=== PATIENT | female | born 1940 | race Caucasian/White ===

== ENCOUNTER → 2017-06-09 | Outpatient (CLI) | payer MEDICARE, BC ==
[2017-06-09 14:54] LABS: Blood Urea Nitrogen 14 mg/dL (7-17); Non-African American GFR(MDRD) >60 (>60 ml/min/1.73 sqM)
--- NOTE | 2017-06-09 16:17 | CT ---
EXAMINATION TYPE: CT angio abd aorta wo/w con DATE OF EXAM: 06/09/2017 COMPARISON: 12/11/2013 INDICATION: Abdominal aortic aneurysm DLP: 1332 mGycm, Automated exposure control for dose reduction was used. CONTRAST: 86 mL of Omnipaque 350. Study performed without Oral Contrast TECHNIQUE: Axial images were obtained from above the diaphragm to the pubic rami in the axial plane a t 5 mm thick sections. Reconstructed images are reviewed on the computer in the coronal plane. Pre and postcontrast imaging is performed. FINDINGS: Limited CT sections are obtained the lung bases. The lung bases are clear. CT ABDOMEN: Liver: Normal Spleen: Normal Pancreas: Normal Adrenal glands: The adrenal glands are normal. Gallbladder: Normal Kidneys: No masses are evident. No hydronephrosis is present. No cysts are present. Delayed images were obtained through the kidneys, which remain unremarkable. Aorta: Vascular calcification is within the aorta. There is aneurysmal dilatation of the mid infrare nal abdominal aorta with an AP diameter of 4.2 cm. This extends to the aortic bifurcation. Aortic samuel meter is increased from 2014 from 4.0 cm. Some wall thrombus is within the right lateral portion of t he aneurysm. Inferior vena cava: Normal. CT PELVIS: Studies without oral contrast limiting evaluation of loops of bowel. Loops of bowel is visualized lai ears unremarkable. There are postsurgical changes within the colon. Diverticular changes are likely p resent within the pelvis. Fecal debris is present Appendix: Not identified Urinary bladder: Decompressed with limited evaluation Genitourinary structures: Uterus and ovaries are not identified Osseous structures: No suspicious lytic or sclerotic lesions. RUNOFF: External iliac vessels extending to the common femoral arteries. Common femoral arteries bifurcate in to profunda femoris and superficial femoral arteries. Superficial femoral arteries are patent to the popliteal arteries. Popliteal arteries extending to the trifurcation vessels. Posterior tibial and an terior tibial arteries are identified to the ankle region. The peroneal arteries terminate within the proximal portions. IMPRESSIONS: 1. Abdominal aortic aneurysm measuring 4.2 cm. This is increased from 4.0 cm in 2014. This infrarena l abdominal aortic aneurysm appears bilobed but terminates at the bifurcation. 2. Posterior tibial and anterior tibial arteries appear to be patent to the level of the ankles. Lowe r extremity runoff is otherwise unremarkable.
== END | disposition home or self-care (01) ==
LOC: RADCTMAIN 14:25
PROVIDERS: ATTEND Internal Medicine Critical Care Medicine
DX: I71.4 Abdominal aortic aneurysm, without rupture (principal)
CPT/HCPCS: 82565; 84520; 75635; 36415; Q9967

== ENCOUNTER 2020-02-13 03:55 | Inpatient (IN) | payer MEDICARE, BC ==
[2020-02-13] MEDS ORDERED: IPRATROPIUM-ALBUTEROL 3 ML NEB INHALATION STA ×2 (04:04→05:00)
[2020-02-13] MEDS ORDERED: ACETAMINOPHEN TAB 500 MG TAB PO STA (04:08)
--- NOTE | 2020-02-13 04:10 | ED ---
SOB HPI - General Chief Complaint: Shortness of Breath Stated Complaint: [place] Time Seen by Provider: 02/13/20 04:08 Source: EMS, RN notes reviewed, old records reviewed, Caregiver Mode of arrival: EMS Limitations: physical limitation - History of Present Illness Initial Comments: This is an 80-year-old female DF a poor historian patient is poor strain se condary to significant clinical condition history obtained by EMS of patient being in severe us for a stress can catch her breath history of CHF and COPD with recurrent ammonium multiple recent admissions or hospitalizations for breathing disorders MD Complaint: shortness of breath, cough, anxiety -: days(s) Severity: severe Severity scale (1-10): 10 Quality: dull Consistency: constant Improves With: nothing Worsens With: exertion, movement, coughing, inspiration Known History Of: COPD, recurrent pneumonia Context: recent URI, recent illness Associated Symptoms: chest pain, fever, cough, diaphoresis, nausea/vomiting Treatments Prior to Arrival: none - Related Data Home Medications Medication Instructions Recorded Confirmed Pravastatin Sodium [Pravachol] 20 mg PO HS 11/10/14 02/13/20 Tiotropium [place] [Spiriva] 1 cap INHALATION RT-DAILY 11/10/14 02/13/20 Albuterol Sulfate [Albuterol 1 - 2 puff PO RT-Q4H PRN 02/13/20 02/13/20 Sulfate Hfa] Cholecalciferol [Vitamin D3 (25 1,000 unit PO DAILY 02/13/20 02/13/20 Mcg = 1000 Iu)] Fluticasone Propion/Salmeterol 1 puff INHALATION RT-BID 02/13/20 02/13/20 [Wixela 500-50 Inhub] Multivitamin [Multivitamins Adult 1 tab PO DAILY 02/13/20 02/13/20 Gummies] predniSONE 10 mg PO DAILY 02/13/20 02/13/20 Allergies Allergy/AdvReac Type Severity Reaction Status Date / Time erythromycin base AdvReac "MADE ME Verified 02/13/20 06:48 TREMBLE" levofloxacin [From Levaquin] AdvReac "MADE ME Verified 02/13/20 06:48 TREMBLE" Review of Systems ROS Statement: Those systems with pertinent positive or pertinent negative responses have been documented in the HPI. ROS Other: All systems not noted in ROS Statement are negative. Past Medical History Past Medical History: COPD Additional Past Medical History / Comment(s): o2 dependant 2 liters cont. History of Any Multi-Drug Resistant Organisms: None Reported Past Surgical History: Hysterectomy Additional Past Surgical History / Comment(s): colonoscopy, colon cancer surgery, cataracts, BRONCHOSCOPY Past Anesthesia/Blood Transfusion Reactions: No Reported Reaction Past Psychological History: No Psychological Hx Reported Smoking Status: Former smoker Past Alcohol Use History: None Reported Past Drug Use History: None Reported - Past Family History Father Family Medical History: Cancer Mother Family Medical History: Diabetes Mellitus Brother(s) Family Medical History: Cancer Additional Family Medical History / Comment(s): PROSTATE CANCER, General Exam Limitations: altered mental status, physical limitation General appearance: alert, anxious, lethargic, in distress Head exam: Present: atraumatic, normocephalic, normal inspection Eye exam: Present: normal appearance, PERRL, EOMI. Absent: scleral icterus, conjunctival injection, periorbital swelling ENT exam: Present: normal exam, mucous membranes dry Neck exam: Present: normal inspection. Absent: tenderness, meningismus, lymphadenopathy Respiratory exam: Present: respiratory distress, wheezes, rhonchi, accessory muscle use, decreased breath sounds, prolonged expiratory. Absent: rales, stridor Cardiovascular Exam: Present: normal rhythm, tachycardia, normal heart sounds. Absent: systolic murmur, diastolic murmur, rubs, gallop, clicks GI/Abdominal exam: Present: soft, normal bowel sounds. Absent: distended, tenderness, guarding, rebound, rigid Extremities exam: Present: normal inspection, full ROM, normal capillary refill. Absent: tenderness, pedal edema, joint swelling, calf tenderness Back exam: Present: normal inspection Neurological exam: Present: alert, oriented X3, CN II-XII intact Psychiatric exam: Present: normal affect, normal mood Skin exam: Present: warm, dry, intact, normal color. 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 ] Respiratory 40 H 38 H Rate Blood Pressure 131/117 112/60 Blood Pressure [Right Arm] O2 Sat by Pulse 95 95 Oximetry 02/13/20 02/13/20 02/13/20 04:19 04:20 05:32 Temperature 97.9 F Pulse Rate 125 H 120 H Pulse Rate [ 123 H 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 ] Respiratory 20 Rate Blood Pressure 91/55 Blood Pressure [Right Arm] O2 Sat by Pulse 95 Oximetry 02/13/20 02/13/20 06:30 06:32 Temperature 97.7 F 97.4 F L Pulse Rate 101 H Pulse Rate [ 97 [employer]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 ] Respiratory 22 22 Rate Blood Pressure 90/71 Blood Pressure 88/51 [Right Arm] O2 Sat by Pulse 94 L 96 Oximetry - Reevaluation(s) Reevaluation #1: Medical record is reviewed Patient symptoms are not really improved and patient is placed on BiPAP on arrival, continue breathing treatments given Patient informed results as well as daughter at bedside Medical Decision Making - Medical Decision Making 80-year-old female Stewart with significant multifactorial for a stress COPD CHF and rule out covert, patient is hypoxic will admit for telemetry continue BiPAP breathing treatments - Lab Data Result diagrams: 02/15/20 05:45 02/15/20 05:45 Lab Results 02/13/20 02/13/20 02/13/20 Range/Units 04:15 04:15 04:15 WBC 12.9 H (3.8-10.6) k/uL RBC 4.75 (3.80-5.40) m/uL Hgb 13.8 (11.4-16.0) gm/dL Hct 43.7 (34.0-46.0) % MCV 91.9 (80.0-100.0) fL MCH 29.1 (25.0-35.0) pg MCHC 31.6 (31.0-37.0) g/dL RDW 13.8 (11.5-15.5) % Plt Count 204 (150-450) k/uL Neutrophils % (Manual) 73 % Band Neutrophils % 10 % Lymphocytes % (Manual) 9 % Monocytes % (Manual) 6 % Metamyelocytes % 2 % Myelocytes % 1 % Neutrophils # (Manual) 10.70 H (1.3-7.7) k/uL Lymphocytes # (Manual) 1.16 (1.0-4.8) k/uL Monocytes # (Manual) 0.77 (0-1.0) k/uL Metamyelocytes # (Man) 0.26 H (0) k/uL Myelocytes # (Manual) 0.13 H (0) k/uL Nucleated RBCs 0 (0-0) /100 WBC Manual Slide Review Performed Toxic Granulation Present Anisocytosis (manual) Present PT 11.1 (9.0-12.0) sec INR 1.1 (<1.2) APTT 22.1 (22.0-30.0) sec D-Dimer >35.20 H (<0.60) mg/L FEU Sodium 135 L (137-145) mmol/L Potassium 3.6 (3.5-5.1) mmol/L Chloride 98 (98-107) mmol/L Carbon Dioxide 30 (22-30) mmol/L Anion Gap 7 mmol/L BUN 20 H (7-17) mg/dL Creatinine 0.46 L (0.52-1.04) mg/dL Est GFR (CKD-EPI)AfAm >90 (>60 ml/min/1.73 sqM) Est GFR (CKD-EPI)NonAf >90 (>60 ml/min/1.73 sqM) Glucose 119 H (74-99) mg/dL Plasma Lactic Acid Ayaan (0.7-2.0) mmol/L Calcium 9.0 (8.4-10.2) mg/dL Magnesium 1.6 (1.6-2.3) mg/dL Ferritin 245.3 (10.0-291.0) ng/mL Total Bilirubin 1.0 (0.2-1.3) mg/dL AST 21 (14-36) U/L ALT 13 (4-34) U/L Alkaline Phosphatase 63 (38-126) U/L Lactate Dehydrogenase 452 (313-618) U/L C-Reactive Protein 189.1 H (<10.0) mg/L Total Protein 5.9 L (6.3-8.2) g/dL Albumin 3.7 (3.5-5.0) g/dL Procalcitonin (0.02-0.09) ng/mL Coronavirus (PCR) (Not Detected) 02/13/20 02/13/20 02/13/20 Range/Units 04:15 04:15 04:44 WBC (3.8-10.6) k/uL RBC (3.80-5.40) m/uL Hgb (11.4-16.0) gm/dL Hct (34.0-46.0) % MCV (80.0-100.0) fL MCH (25.0-35.0) pg MCHC (31.0-37.0) g/dL RDW (11.5-15.5) % Plt Count (150-450) k/uL Neutrophils % (Manual) % Band Neutrophils % % Lymphocytes % (Manual) % Monocytes % (Manual) % Metamyelocytes % % Myelocytes % % Neutrophils # (Manual) (1.3-7.7) k/uL Lymphocytes # (Manual) (1.0-4.8) k/uL Monocytes # (Manual) (0-1.0) k/uL Metamyelocytes # (Man) (0) k/uL Myelocytes # (Manual) (0) k/uL Nucleated RBCs (0-0) /100 WBC Manual Slide Review Toxic Granulation Anisocytosis (manual) PT (9.0-12.0) sec INR (<1.2) APTT (22.0-30.0) sec D-Dimer (<0.60) mg/L FEU Sodium (137-145) mmol/L Potassium (3.5-5.1) mmol/L Chloride (98-107) mmol/L Carbon Dioxide (22-30) mmol/L Anion Gap mmol/L BUN (7-17) mg/dL Creatinine (0.52-1.04) mg/dL Est GFR (CKD-EPI)AfAm (>60 ml/min/1.73 sqM) Est GFR (CKD-EPI)NonAf (>60 ml/min/1.73 sqM) Glucose (74-99) mg/dL Plasma Lactic Acid Ayaan 1.3 (0.7-2.0) mmol/L Calcium (8.4-10.2) mg/dL Magnesium (1.6-2.3) mg/dL Ferritin (10.0-291.0) ng/mL Total Bilirubin (0.2-1.3) mg/dL AST (14-36) U/L ALT (4-34) U/L Alkaline Phosphatase (38-126) U/L Lactate Dehydrogenase (313-618) U/L C-Reactive Protein (<10.0) mg/L Total Protein (6.3-8.2) g/dL Albumin (3.5-5.0) g/dL Procalcitonin 0.71 H (0.02-0.09) ng/mL Coronavirus (PCR) Not Detected (Not Detected) - EKG Data -: EKG Interpreted by Me (EKG is sinus tachycardia 122 AR 130 QRS 110 QTc 453) - Radiology Data Radiology results: report reviewed (Chest x-rays positive for bilateral pneumonia), image reviewed Critical Care Time Critical Care Time: Yes Total Critical Care Time: 31 Disposition Clinical Impression: Bilateral pneumonia, Decompensated COPD with exacerbation (chronic obstructive pulmonary disease), Acute exacerbation of chronic obstructive airways disease, Hypoxia, Hospital-acquired pneumonia Disposition: ADMITTED IP TO THIS HOSP Condition: Serious Is patient prescribed a controlled substance at d/c from ED?: No
[2020-02-13 04:40] LABS: HCT 43.7 % (34.0-46.0); HGB 13.8 gm/dL (11.4-16.0); MCH 29.1 pg (25.0-35.0); MCHC 31.6 g/dL (31.0-37.0); MCV 91.9 fL (80.0-100.0); Mean Platelet Volume 7.2; Platelet Count 204 k/uL (150-450); RBC 4.75 m/uL (3.80-5.40); RDW 13.8 % (11.5-15.5); WBC 12.9 k/uL (3.8-10.6)
--- NOTE | 2020-02-13 04:44 | XR ---
EXAMINATION TYPE: XR chest 1V portable DATE OF EXAM: 02/13/2020 COMPARISON: 10/19/2018 HISTORY: Pneumonia. Short of breath. TECHNIQUE: FINDINGS: There is some airspace consolidation in the right lower lobe. There is also milder infiltra te left lower lobe. There is pulmonary hyperinflation and flattening of the diaphragm. There is some blunting of the costophrenic angles. There is pulmonary emphysema. There are no hilar masses. There i s no definite heart failure. IMPRESSION: Bilateral lower lobe pneumonia appears new compared to old exam. Emphysema.
[2020-02-13 04:54] LABS: ALT 13 U/L (4-34); AST 21 U/L (14-36); African American GFR (CKD) >90 (>60 ml/min/1.73 sqM); Albumin 3.7 g/dL (3.5-5.0); Alkaline Phosphatase 63 U/L (38-126); Anion Gap 7 mmol/L; Blood Urea Nitrogen 20 mg/dL (7-17); Carbon Dioxide 30 mmol/L (22-30); Chloride 98 mmol/L (98-107); Glucose 119 mg/dL (74-99); LDH 452 U/L (313-618); Magnesium 1.6 mg/dL (1.6-2.3); Non-African American GFR(CKD) >90 (>60 ml/min/1.73 sqM); Potassium 3.6 mmol/L (3.5-5.1); Sodium 135 mmol/L (137-145); Total Protein 5.9 g/dL (6.3-8.2)
[2020-02-13] MEDS ORDERED: SODIUM CHLORIDE 0.9% 1,000 ML IV STA (05:00)
[2020-02-13] MEDS ORDERED: SODIUM CHLORIDE 0.9% 500 ML 500 ML IV STA (05:00)
[2020-02-13] MEDS ORDERED: MORPHINE SULFATE 2 MG/ML SYRINGE IVP STA (05:00)
[2020-02-13] MEDS ORDERED: IBUPROFEN IV 400 MG in SODIUM CHLORIDE 0.9% 100 ML IV ONE (05:00)
[2020-02-13] MEDS ORDERED: PNEUMONIA PROTOCOL UTILIZED 1 EACH MISC PO PRN (05:02)
[2020-02-13] MEDS ORDERED: PIPERACILLIN-TAZOBACTAM 3.375 GM in SODIUM CHLORIDE 0.9% 100 ML IVPB STA (05:02)
[2020-02-13] MEDS ORDERED: IPRATROPIUM-ALBUTEROL 3 ML NEB INHALATION PRN ×2 (05:02→11:14)
[2020-02-13] MEDS ORDERED: TOBRAMYCIN PER PHARMACY MISCELLANE PRN (05:02)
[2020-02-13] MEDS ORDERED: AZITHROMYCIN 500 MG in SODIUM CHLORIDE 0.9% 250 ML IVPB STA (05:02)
[2020-02-13 05:06] LABS: INR 1.1 (<1.2); Partial Thromboplastin Time 22.1 sec (22.0-30.0); Prothrombin Time 11.1 sec (9.0-12.0)
[2020-02-13 05:15] LABS: D-Dimer >35.20 mg/L FEU (<0.60)
[2020-02-13 05:23] LABS: C Reactive Protein 189.1 mg/L (<10.0)
[2020-02-13] MEDS: SODIUM CHLORIDE 0.9% 1,000 ML IV STA ×2 (05:23→15:45)
[2020-02-13 05:25] LABS: Band Neutrophils % 10 %; Lymphocytes # (M) 1.16 k/uL (1.0-4.8); Metamyelocytes # (M) 0.26 k/uL (0); Metamyelocytes % 2 %; Monocytes # (M) 0.77 k/uL (0-1.0); Myelocytes # (M) 0.13 k/uL (0); Myelocytes % 1 %; Neutrophils % (M) 73 %; Nucleated Red Blood Cells 0 /100 WBC (0-0); Total Cells Counted 200
[2020-02-13 05:28] LABS: Toxic Granulation Present
[2020-02-13 05:30] LABS: Anisocytosis (M) Present
--- NOTE | 2020-02-13 06:05 | CT ---
EXAMINATION TYPE: CT angio chest DATE OF EXAM: 02/13/2020 COMPARISON: None HISTORY: R/O PE, Cough CT DLP: 182.90 mGycm Automated exposure control for dose reduction was used. CONTRAST: Performed with IV Contrast, patient injected with 70 mL of Isovue 370. Our 3-D post processed images. There is diffuse pulmonary emphysema. There is some airspace consolidation in the right lower lobe at the lung bases. There is a mild reticular infiltrate left posterior lung base. There is no pleural e ffusion. Heart size is normal. There is no pericardial effusion. There are no hilar masses. There is no mediastinal adenopathy. Thoracic aorta is atheromatous. There is no aneurysm or dissection. Ascend ing aorta measures 2.8 cm. There are a few right bronchial lymph nodes that measure up to 1 cm. There are no filling defects in the pulmonary arteries. There is normal contrast opacification of the pulmonary arteries. The bony th orax is intact. There is no thoracic compression fracture. Sternum is intact. The ribs appear intact. There is partial visualization of large abdominal aortic aneurysm that measures 5.2 cm. IMPRESSION: Pulmonary emphysema. Right lower lobe pneumonia. No evidence of pulmonary embolism. 5.2 cm aneurysm of the upper abdominal aorta is increased 1 cm in size compared to old CT scan of .
--- NOTE | 2020-02-13 06:23 | CT ---
EXAMINATION TYPE: CT angio thor/abd pel aorta DATE OF EXAM: 02/13/2020 COMPARISON: 06/09/2017 HISTORY: R/O AAA CT DLP: 765.60 mGycm Automated exposure control for dose reduction was used. CONTRAST: Performed with IV Contrast, patient injected with 80 mL of Isovue 370. There are 3-D post processed images. Images were obtained from the level of the top of the aortic arch to the subtrochanteric femurs with and without IV contrast. There is extensive airspace consolidation right lower lobe. Heart size is normal. Thoracic aorta is a theromatous. The ascending aorta measures 3 cm. There is no thoracic aortic dissection. There is patency of the celiac artery and superior mesenteric artery. There is bilateral patency of t he renal arteries. There is lower abdominal aortic aneurysm that measures up to 5.2 cm in diameter. T here is thrombus in the aorta that measures up to 2 cm in thickness. The aorta measures 3.7 cm at the aortic bifurcation. There is bilateral arterial flow in the iliac and femoral arteries. I see no helen dence of hemodynamic stenosis. There is no evidence of arterial dissection. There appears to be good distal flow in the branches of the abdominal aorta. There is normal contrast opacification of the kidneys. There is no hydronephrosis. Liver is intact. T he spleen appears intact. There is no pancreatic mass. Stomach is intact. There is no retroperitoneal adenopathy. There is no mesenteric edema. There is bilateral ureteral jets in the urinary bladder. Bladder disten ds smoothly. There is no inguinal hernia. There is no evidence of pelvic mass. There is no evidence o f leaking aneurysm. There is spondylotic changes in the thoracic and lumbar spine. There is no compression fracture. Bony pelvis appears intact. IMPRESSION: 5.2 cm maximum diameter aneurysm of the mid and lower abdominal aorta. Aneurysm is increased from 4.2 cm compared to old exam. No evidence of leakage or aortic dissection. Extensive right lower lobe pneumonia. No evidence of pulmonary embolism.
[2020-02-13] MEDS ORDERED: LORazepam 2 MG/ML INJ IV PRN (06:29)
[2020-02-13] MEDS ORDERED: SODIUM CHLORIDE 0.9% IVPB SCH (07:00)
[2020-02-13] MEDS ORDERED: TOBRAMYCIN SULFATE IVPB SCH (07:00)
[2020-02-13] MEDS ORDERED: ALBUTEROL NEBULIZED 2.5 MG/3 ML INHALATION SCH (08:00)
[2020-02-13] MEDS: PANTOPRAZOLE 40 MG/10 ML VIAL IV SCH (09:43)
[2020-02-13 11:36] LABS: Glucose,Whole Blood 127 mg/dL (75-99)
[2020-02-13] MEDS: IPRATROPIUM-ALBUTEROL 3 ML NEB INHALATION SCH ×3 (12:15→19:11)
--- NOTE | 2020-02-13 12:36 | P.CNPUL ---
History of Present Illness Consult date: 02/13/20 Requesting physician: Viet Tam Reason for consult: COPD, hypoxemia, pneumonia Chief complaint: Shortness of breath History of present illness: This is an 80-year-old female with history of severe end-stage COPD, oxygen dependent, maintained on 2 L nasal cannula 14/02, normally followed up with Dr. López on a regular basis for her underlying COPD patient saw Dr. López last on 02/12/20, and she was basically complaining of shortness of breath cough, wheezing, she was on maintenance prednisone of 10 mg daily, and she was on wixela and Spiriva. Patient was given Depo-Medrol 80 mg IM and placed on prednisone at 40 mg to be tapered down gradually to her usual dose which is 10 mg maintenance. However the patient's condition did not improve much, today the patient ended up in the emergency room complaining of worsening pulmonary symptoms. Chest x-ray and CT angiogram of the chest showed extensive right lower lobe pneumonia. Patient was admitted, started on antibiotics, bronchodi lators, steroids, and I was asked to see her on consultation. Upon evaluating the patient, patient was noted to be in moderate respiratory distress, she was on BiPAP, and she was noted to be quite dyspneic. And on physical examination she has diffuse crackles and rhonchi and wheezes. Considering her underlying severe COPD and considering the patient is extremely marginal, I went ahead and transfer the patient to the ICU. According to the patient and her daughter, the patient has been experiencing worsening cough, no fever, no chills, but her cough has been productive and sputum has been blood-tinged. Patient has been compliant with all the medications and bronchodilators that she was supposed to be on denies any exposure to any one with covid, however the patient was tested, and PCR is pending. d 19. Review of Systems Constitutional: Weight loss, patient failed the Megace in the past. And not gaining weight with prednisone. HEENT: Negative. Pulmonary: As noted in HPI. Cardiac: Negative. GI: Negative. Genitourinary: Negative. Musculoskeletal: Negative. Skin: Negative. Endocrine: Negative. Hematologic: Hemoptysis as noted in HPI. Psychiatric: Negative. Neurologic: Negative Past Medical History Past Medical History: COPD Additional Past Medical History / Comment(s): o2 dependant 2 liters cont. History of Any Multi-Drug Resistant Organisms: None Reported Past Surgical History: Hysterectomy Additional Past Surgical History / Comment(s): colonoscopy, colon cancer surgery, cataracts, BRONCHOSCOPY Past Anesthesia/Blood Transfusion Reactions: No Reported Reaction Past Psychological History: No Psychological Hx Reported Additional Psychological History / Comment(s): PT LIVES AT HOME WITH HER , IS INDEPENDANT BUT SINCE SICK LATELY HAS BEEN USING A WHEELED WALKER. 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 PT WAS JUST FINISHING UP A STEROID DOSE PACK AT HOME BUT C/O SOB BROUGHT HER TO THE HOSPITAL. Smoking Status: Former smoker Past Alcohol Use History: None Reported Additional Past Alcohol Use History / Comment(s): started smoking in high school quit 2004, smoked 1-2 ppd Past Drug Use History: None Reported - Past Family History Father Family Medical History: Cancer Mother Family Medical History: Diabetes Mellitus Brother(s) Family Medical History: Cancer Additional Family Medical History / Comment(s): PROSTATE CANCER, Medications and Allergies Home Medications Medication Instructions Recorded Confirmed Type Pravastatin Sodium [Pravachol] 20 mg PO HS 11/10/14 02/13/20 History Tiotropium [place] [Spiriva] 1 cap INHALATION RT-DAILY 11/10/14 02/13/20 History Albuterol Sulfate [Albuterol 1 - 2 puff PO RT-Q4H PRN 02/13/20 02/13/20 History Sulfate Hfa] Cholecalciferol [Vitamin D3 (25 1,000 unit PO DAILY 02/13/20 02/13/20 History Mcg = 1000 Iu)] Fluticasone Propion/Salmeterol 1 puff INHALATION RT-BID 02/13/20 02/13/20 History [Wixela 500-50 Inhub] Multivitamin [Multivitamins Adult 1 tab PO DAILY 02/13/20 02/13/20 History Gummies] predniSONE 10 mg PO DAILY 02/13/20 02/13/20 History Allergies Allergy/AdvReac Type Severity Reaction Status Date / Time erythromycin base AdvReac "MADE ME Verified 02/13/20 06:48 TREMBLE" levofloxacin [From Levaquin] AdvReac "MADE ME Verified 02/13/20 06:48 TREMBLE" Physical Exam Vitals: Vital Signs Temp Pulse Pulse Resp BP BP Pulse Ox 02/13/20 12:05 100 02/13/20 11:55 98 02/13/20 11:30 97.1 F L 97 23 100/62 79 L 02/13/20 08:00 97.7 F 91 22 88/51 94 L 02/13/20 06:32 97.4 F L 101 H 22 90/71 96 02/13/20 06:30 97.7 F 97 22 88/51 94 L 02/13/20 05:32 97.9 F 120 H 20 91/55 95 02/13/20 04:20 123 H 02/13/20 04:19 125 H 02/13/20 04:10 122 H 38 H 112/60 95 02/13/20 04:07 123 H 02/13/20 04:03 100.2 F H 127 H 40 H 131/117 95 Intake and Output 02/12/20 02/13/20 02/13/20 22:59 06:59 14:59 Output Total 0 Balance 0 Output: Urine 0 Other: # Voids 0 1 Weight 39.009 kg 39.009 kg Physical Exam: Revealed 80-year-old female in moderate respiratory distress. Patient looks cachectic, frail, and chronically ill. On BiPAP. Head: Atraumatic, normocephalic. HEENT:[Neck is supple.] [No neck masses.] [No thyromegaly.] [No JVD.] Chest: [Crackles and rhonchi and wheezes noted bilaterally..] Cardiac Exam: [Normal S1 and S2, no S3 gallop, no murmur.] Abdomen: [Soft, nontender, no megaly, no rebound, no guarding, normal bowel sounds.] Extremities: [No clubbing, no edema, no cyanosis.] Neurological Exam: [No focal neurologic deficit.] Alert oriented 3. Skin: No rashes. Psychiatric: Normal mood affect and normal mental status examination. Results - Laboratory Findings CBC and BMP: 02/13/20 04:15 02/13/20 04:15 PT/INR, D-dimer PT 11.1 sec (9.0-12.0) 02/13/20 04:15 INR 1.1 (<1.2) 02/13/20 04:15 D-Dimer >35.20 mg/L FEU (<0.60) H 02/13/20 04:15 Abnormal lab findings: Abnormal Labs 02/13/20 02/13/20 02/13/20 04:15 04:15 04:15 WBC 12.9 H Neutrophils # (Manual) 10.70 H Metamyelocytes # (Man) 0.26 H Myelocytes # (Manual) 0.13 H D-Dimer >35.20 H Sodium 135 L BUN 20 H Creatinine 0.46 L Glucose 119 H POC Glucose (mg/dL) C-Reactive Protein 189.1 H Total Protein 5.9 L 02/13/20 11:26 WBC Neutrophils # (Manual) Metamyelocytes # (Man) Myelocytes # (Manual) D-Dimer Sodium BUN Creatinine Glucose POC Glucose (mg/dL) 127 H C-Reactive Protein Total Protein - Diagnostic Findings CT scan - chest: image reviewed (Extensive right lower lobe pneumonia, no evidence of pulmonary embolism, 5.2 cm aneurysm of the upper abdominal aorta. Increased in size compared to 2017) Assessment and Plan Assessment: Impression: Acute on chronic hypoxic respiratory failure secondary to extensive right lower lobe pneumonia and acute exacerbation of COPD. Acute right lower lobe pneumonia, community-acquired. Hemoptysis secondary to right lower lobe pneumonia. Acute exacerbation of COPD. Abdominal aortic aneurysm History of tubular adenoma and colonic polyps. Dyslipidemia. Recommendation: Patient will transfer to the ICU Continue BiPAP and adjust accordingly, titrate FiO2 to keep O2 saturation above 90%. Continue bronchodilators IV steroids/Solu-Medrol. Broad-spectrum antibiotics empirically. Patient had previous history of Pseudomonas pneumonia infection. PCR for yarbrough virus is pending. CODE STATUS is full based on my conversation with her daughter. Prognosis is extremely poor. We'll continue to follow. Time with Patient: Greater than 30
[2020-02-13] MEDS ORDERED: VANCOMYCIN IV PER PHARMACY 1 EACH MISC MISCELLANE PRN (12:37)
[2020-02-13] MEDS: SYMBICORT 160-4.5 MCG INHALER INHALATION SCH ×2 (12:39→19:10)
[2020-02-13] MEDS ORDERED: ONDANSETRON 4 MG/2 ML VIAL ONE (12:40)
[2020-02-13 12:41] LABS: Ferritin 245.3 ng/mL (10.0-291.0)
[2020-02-13] MEDS ORDERED: VANCOMYCIN 750 MG in SODIUM CHLORIDE 0.9% 250 ML IVPB ONE (13:00)
[2020-02-13] MEDS ORDERED: propofoL 100 ML IV ONE (13:18)
[2020-02-13 14:18] LABS: ABG HCO3 27 mmol/L (21-25); ABG Oxygen Saturation 99.3 % (94-97); ABG PO2 227 mmHg (83-108); ABG TCO2 29 mmol/L (19-24)
[2020-02-13 14:20] LABS: ABG PH 7.15 (7.35-7.45)
[2020-02-13 14:21] LABS: ABG PCO2 77 mmHg (35-45); Allen Test Performed? no
--- NOTE | 2020-02-13 14:33 | P.GSCN ---
History of Present Illness Consult date: 02/13/20 History of present illness: The patient is an 80-year-old female with significant past medical history including COPD who was initially admitted to the hospital worsening shortness of breath. She was found to have significant pneumonia on her chest CT angiogram. She was also noted to have a 5.2 cm abdominal aortic aneurysm. This has been known about in the past but it has grown from approximate 4.2 cm about 3 years ago. We are asked to see the patient regarding this. The time of evaluation the patient is currently being intubated in the ICU with intensive invasive lines being placed. History is gathered from the chart as well as the patient's daughter. They have never had a vascular surgeon evaluate her follow-up or her abdominal aortic aneurysm. Past Medical History Past Medical History: COPD Additional Past Medical History / Comment(s): o2 dependant 2 liters cont. History of Any Multi-Drug Resistant Organisms: None Reported Past Surgical History: Hysterectomy Additional Past Surgical History / Comment(s): colonoscopy, colon cancer surgery, cataracts, BRONCHOSCOPY Past Anesthesia/Blood Transfusion Reactions: No Reported Reaction Past Psychological History: No Psychological Hx Reported Additional Psychological History / Comment(s): PT LIVES AT HOME WITH HER , IS INDEPENDANT BUT SINCE SICK LATELY HAS BEEN USING A WHEELED WALKER. 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 PT WAS JUST FINISHING UP A STEROID DOSE PACK AT HOME BUT C/O SOB BROUGHT HER TO THE HOSPITAL. Smoking Status: Former smoker Past Alcohol Use History: None Reported Additional Past Alcohol Use History / Comment(s): started smoking in high school quit 2004, smoked 1-2 ppd Past Drug Use History: None Reported - Past Family History Father Family Medical History: Cancer Mother Family Medical History: Diabetes Mellitus Brother(s) Family Medical History: Cancer Additional Family Medical History / Comment(s): PROSTATE CANCER, Medications and Allergies Home Medications Medication Instructions Recorded Confirmed Type Pravastatin Sodium [Pravachol] 20 mg PO HS 11/10/14 02/13/20 History Tiotropium [place] [Spiriva] 1 cap INHALATION RT-DAILY 11/10/14 02/13/20 History Albuterol Sulfate [Albuterol 1 - 2 puff PO RT-Q4H PRN 02/13/20 02/13/20 History Sulfate Hfa] Cholecalciferol [Vitamin D3 (25 1,000 unit PO DAILY 02/13/20 02/13/20 History Mcg = 1000 Iu)] Fluticasone Propion/Salmeterol 1 puff INHALATION RT-BID 02/13/20 02/13/20 History [Wixela 500-50 Inhub] Multivitamin [Multivitamins Adult 1 tab PO DAILY 02/13/20 02/13/20 History Gummies] predniSONE 10 mg PO DAILY 02/13/20 02/13/20 History Allergies Allergy/AdvReac Type Severity Reaction Status Date / Time erythromycin base AdvReac "MADE ME Verified 02/13/20 06:48 TREMBLE" levofloxacin [From Levaquin] AdvReac "MADE ME Verified 02/13/20 06:48 TREMBLE" Surgical - Exam Vital Signs Temp Pulse Resp BP Pulse Ox 100.2 F H 127 H 40 H 131/117 95 02/13/20 04:03 02/13/20 04:03 02/13/20 04:03 02/13/20 04:03 02/13/20 04:03 Gen. is a severely ill female in moderate respiratory distress recently intub ated. Currently getting a central line in the IJ. Heart is regular at this time lungs is severely decreased breath sounds. Abdomen is soft, nontender nondistended. Extremities show no clubbing, cyanosis or edema. Results CT angiogram of the thorax and pelvis is reviewed. Approximate 5.2 cm more saccular appearing aneurysm in the infrarenal abdominal aorta without signs of rupture - Labs 02/13/20 04:15 02/13/20 04:15 Abnormal Lab Results - Last 24 Hours (Table) 02/13/20 02/13/20 02/13/20 Range/Units 04:15 04:15 04:15 WBC 12.9 H (3.8-10.6) k/uL Neutrophils # (Manual) 10.70 H (1.3-7.7) k/uL Metamyelocytes # (Man) 0.26 H (0) k/uL Myelocytes # (Manual) 0.13 H (0) k/uL D-Dimer >35.20 H (<0.60) mg/L FEU ABG pH (7.35-7.45) ABG pCO2 (35-45) mmHg ABG pO2 (83-108) mmHg ABG HCO3 (21-25) mmol/L ABG Total CO2 (19-24) mmol/L ABG O2 Saturation (94-97) % Sodium 135 L (137-145) mmol/L BUN 20 H (7-17) mg/dL Creatinine 0.46 L (0.52-1.04) mg/dL Glucose 119 H (74-99) mg/dL POC Glucose (mg/dL) (75-99) mg/dL C-Reactive Protein 189.1 H (<10.0) mg/L Total Protein 5.9 L (6.3-8.2) g/dL Procalcitonin (0.02-0.09) ng/mL 02/13/20 02/13/20 02/13/20 Range/Units 04:15 11:26 14:14 WBC (3.8-10.6) k/uL Neutrophils # (Manual) (1.3-7.7) k/uL Metamyelocytes # (Man) (0) k/uL Myelocytes # (Manual) (0) k/uL D-Dimer (<0.60) mg/L FEU ABG pH 7.15 L* (7.35-7.45) ABG pCO2 77 H* (35-45) mmHg ABG pO2 227 H (83-108) mmHg ABG HCO3 27 H (21-25) mmol/L ABG Total CO2 29 H (19-24) mmol/L ABG O2 Saturation 99.3 H (94-97) % Sodium (137-145) mmol/L BUN (7-17) mg/dL Creatinine (0.52-1.04) mg/dL Glucose (74-99) mg/dL POC Glucose (mg/dL) 127 H (75-99) mg/dL C-Reactive Protein (<10.0) mg/L Total Protein (6.3-8.2) g/dL Procalcitonin 0.71 H (0.02-0.09) ng/mL Diabetes panel 02/13/20 Range/Units 04:15 Sodium 135 L (137-145) mmol/L Potassium 3.6 (3.5-5.1) mmol/L Chloride 98 (98-107) mmol/L Carbon Dioxide 30 (22-30) mmol/L BUN 20 H (7-17) mg/dL Creatinine 0.46 L (0.52-1.04) mg/dL Glucose 119 H (74-99) mg/dL Calcium 9.0 (8.4-10.2) mg/dL AST 21 (14-36) U/L ALT 13 (4-34) U/L Alkaline Phosphatase 63 (38-126) U/L Total Protein 5.9 L (6.3-8.2) g/dL Albumin 3.7 (3.5-5.0) g/dL Calcium panel 02/13/20 Range/Units 04:15 Calcium 9.0 (8.4-10.2) mg/dL Albumin 3.7 (3.5-5.0) g/dL Pituitary panel 02/13/20 Range/Units 04:15 Sodium 135 L (137-145) mmol/L Potassium 3.6 (3.5-5.1) mmol/L Chloride 98 (98-107) mmol/L Carbon Dioxide 30 (22-30) mmol/L BUN 20 H (7-17) mg/dL Creatinine 0.46 L (0.52-1.04) mg/dL Glucose 119 H (74-99) mg/dL Calcium 9.0 (8.4-10.2) mg/dL Adrenal panel 02/13/20 Range/Units 04:15 Sodium 135 L (137-145) mmol/L Potassium 3.6 (3.5-5.1) mmol/L Chloride 98 (98-107) mmol/L Carbon Dioxide 30 (22-30) mmol/L BUN 20 H (7-17) mg/dL Creatinine 0.46 L (0.52-1.04) mg/dL Glucose 119 H (74-99) mg/dL Calcium 9.0 (8.4-10.2) mg/dL Total Bilirubin 1.0 (0.2-1.3) mg/dL AST 21 (14-36) U/L ALT 13 (4-34) U/L Alkaline Phosphatase 63 (38-126) U/L Total Protein 5.9 L (6.3-8.2) g/dL Albumin 3.7 (3.5-5.0) g/dL Assessment and Plan Assessment: #1 abdominal aortic aneurysm, 5.2 cm without evidence of rupture #2 acute on chronic hypoxic respiratory failure #3 extensive right lower lobe pneumonia #4 COPD #5 hemoptysis #6 history of tubular adenomatous colonic polyps #7 dyslipidemia Plan: At this time, long discussion was had with the daughter regarding plans. The patient is to acutely ill from her acute on chronic respiratory issues to consider going forth with surgical intervention. The aneurysm itself does warrant repair given its size and more tendency of by lobar and somewhat saccular nature. She is currently not a surgical candidate. It was discussed with the daughter that if she gets through this bout of respiratory problems, we'll see her in the office in short-term follow-up to evaluate the possibility of repair versus no planned interventions. I would anticipate even at that time going forward, her overall health and comorbidities would preclude her from being significantly benefited by an intervention. The daughter seemingly understands and is willing to proceed as such.
[2020-02-13 14:43] LABS: Potassium 4.6 mmol/L (3.5-5.1)
[2020-02-13 14:46] LABS: ALT 22 U/L (4-34); AST 31 U/L (14-36); African American GFR (CKD) >90 (>60 ml/min/1.73 sqM); Albumin 2.7 g/dL (3.5-5.0); Alkaline Phosphatase 41 U/L (38-126); Anion Gap 6 mmol/L; Blood Urea Nitrogen 19 mg/dL (7-17); Calcium 7.9 mg/dL (8.4-10.2); Carbon Dioxide 25 mmol/L (22-30); Chloride 107 mmol/L (98-107); Glucose 131 mg/dL (74-99); Magnesium 1.7 mg/dL (1.6-2.3); Non-African American GFR(CKD) >90 (>60 ml/min/1.73 sqM); Phosphorus 4.8 mg/dL (2.5-4.5); Sodium 138 mmol/L (137-145); Total Bilirubin 0.6 mg/dL (0.2-1.3); Total Protein 4.7 g/dL (6.3-8.2)
[2020-02-13 14:47] LABS: HCT 40.1 % (34.0-46.0); HGB 12.4 gm/dL (11.4-16.0); Hypochromasia Marked; MCH 29.5 pg (25.0-35.0); MCHC 30.9 g/dL (31.0-37.0); MCV 95.7 fL (80.0-100.0); Mean Platelet Volume 7.1; Platelet Count 200 k/uL (150-450); RBC 4.19 m/uL (3.80-5.40); RDW 13.9 % (11.5-15.5); WBC 5.6 k/uL (3.8-10.6)
--- NOTE | 2020-02-13 14:58 | XR ---
EXAMINATION TYPE: XR chest 1V portable DATE OF EXAM: 02/13/2020 COMPARISON: 02/13/2020 HISTORY: Shortness of breath TECHNIQUE: Single frontal view of the chest is obtained. FINDINGS: Diffuse changes of COPD are noted with bilateral lower lobe infiltrate and small effusion greater on the right. The heart is stable in size. ET tube approximately 4.5 cm above kole. NG tube noted. Hypertrophic and degenerative change of the spine. No pneumothorax. IMPRESSION: 1. COPD with bilateral infiltrate and pleural effusion correlate for pneumonia otherwise consider CHF . 2. ET tube approximately 4.5 cm above kole
[2020-02-13] MEDS: PIPERACILLIN-TAZOBACTAM 3.375 GM in SODIUM CHLORIDE 0.9% 100 ML IVPB SCH ×2 (15:27→23:41)
[2020-02-13] MEDS ORDERED: SODIUM CHLORIDE 0.9% 1,000 ML IV ONE (15:31)
[2020-02-13 15:34] LABS: ABG Base Excess -4.7 mmol/L; ABG HCO3 25 mmol/L (21-25); ABG Oxygen Saturation 99.6 % (94-97); ABG PO2 268 mmHg (83-108); ABG TCO2 27 mmol/L (19-24)
[2020-02-13 15:37] LABS: Band Neutrophils % 25 %; Eosinophils # (M) 0.06 k/uL (0-0.7); Lymphocytes # (M) 0.28 k/uL (1.0-4.8); Metamyelocytes # (M) 0.56 k/uL (0); Metamyelocytes % 10 %; Monocytes # (M) 0.56 k/uL (0-1.0); Myelocytes # (M) 0.22 k/uL (0); Myelocytes % 4 %; Neutrophils % (M) 48 %; Nucleated Red Blood Cells 0 /100 WBC (0-0); Total Cells Counted 200
[2020-02-13 15:40] LABS: Toxic Granulation Present; Toxic Vacuolation Present
[2020-02-13 15:44] LABS: ABG PCO2 80 mmHg (35-45); Allen Test Performed? no
[2020-02-13] MEDS ORDERED: Magnesium Replacement Protocol 1 EACH MISC MISCELLANE PRN (15:46)
[2020-02-13] MEDS ORDERED: Potassium Replacement Protocol 1 EACH MISC MISCELLANE PRN (15:46)
--- NOTE | 2020-02-13 15:50 | P.HPIM ---
History of Present Illness H&P Date: 02/13/20 Chief Complaint: Worsening dyspnea, fevers, hemoptysis, This is an 80-year-old female with end-stage COPD and multiple other medical issues. 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 Daughter reports patient was having bright red hemoptysis, thick green-yellow sputum.chest CT reported extensive right lower lobe pneumonia with no evidence of PE, increased aneurysm 5.[address] angiogram of the thorax and pelvis reported 5.2 cm abnormal aneurysm in the infrarenal abdominal aorta without signs of rupture. Maintained on IV antibiotics, IV steroids, BiPAP with O2 sats in the 90s. T-max 100.2, WBC elevated at 12.9. BUN/Creatinine 20/0.46. C-reactive protein 189.1 now increased to 306, LDH 452 prior calcitonin 0.71. Lactic acid 1.3 , INR 1.1, d- dimer greater than 35.2, now down to 11.64.Magnesium 1.7. Hemoglobin 12.4, platelets 200 Review of Systems ROS Statement: Those systems with pertinent positive or pertinent negative responses have been documented in the HPI. ROS Other: All systems not noted in ROS Statement are negative. Past Medical History Past Medical History: COPD Additional Past Medical History / Comment(s): o2 dependant 2 liters cont. History of Any Multi-Drug Resistant Organisms: None Reported Past Surgical History: Hysterectomy Additional Past Surgical History / Comment(s): colonoscopy, colon cancer surgery, cataracts, BRONCHOSCOPY Past Anesthesia/Blood Transfusion Reactions: No Reported Reaction Past Psychological History: No Psychological Hx Reported Additional Psychological History / Comment(s): PT LIVES AT HOME WITH HER , IS INDEPENDANT BUT SINCE SICK LATELY HAS BEEN USING A WHEELED WALKER. 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 PT WAS JUST FINISHING UP A STEROID DOSE PACK AT HOME BUT C/O SOB BROUGHT HER TO THE HOSPITAL. Smoking Status: Former smoker Past Alcohol Use History: None Reported Additional Past Alcohol Use History / Comment(s): started smoking in high school quit 2004, smoked 1-2 ppd Past Drug Use History: None Reported - Past Family History Father Family Medical History: Cancer Mother Family Medical History: Diabetes Mellitus Brother(s) Family Medical History: Cancer Additional Family Medical History / Comment(s): PROSTATE CANCER, Medications and Allergies Home Medications Medication Instructions Recorded Confirmed Type Pravastatin Sodium [Pravachol] 20 mg PO HS 11/10/14 02/13/20 History Tiotropium [place] [Spiriva] 1 cap INHALATION RT-DAILY 11/10/14 02/13/20 History Albuterol Sulfate [Albuterol 1 - 2 puff PO RT-Q4H PRN 02/13/20 02/13/20 History Sulfate Hfa] Cholecalciferol [Vitamin D3 (25 1,000 unit PO DAILY 02/13/20 02/13/20 History Mcg = 1000 Iu)] Fluticasone Propion/Salmeterol 1 puff INHALATION RT-BID 02/13/20 02/13/20 History [Wixela 500-50 Inhub] Multivitamin [Multivitamins Adult 1 tab PO DAILY 02/13/20 02/13/20 History Gummies] predniSONE 10 mg PO DAILY 02/13/20 02/13/20 History Allergies Allergy/AdvReac Type Severity Reaction Status Date / Time erythromycin base AdvReac "MADE ME Verified 02/13/20 06:48 TREMBLE" levofloxacin [From Levaquin] AdvReac "MADE ME Verified 02/13/20 06:48 TREMBLE" Physical Exam Vitals: Vital Signs Temp Pulse Pulse Resp BP BP Pulse Ox 02/13/20 13:00 97.2 F L 104 H 14 105/61 98 02/13/20 12:30 101 H 16 111/57 97 02/13/20 12:05 100 02/13/20 12:00 98 23 105/51 91 L 02/13/20 11:55 98 02/13/20 11:30 97.1 F L 97 23 100/62 79 L 02/13/20 08:00 97.7 F 91 22 88/51 94 L 02/13/20 06:32 97.4 F L 101 H 22 90/71 96 02/13/20 06:30 97.7 F 97 22 88/51 94 L 02/13/20 05:32 97.9 F 120 H 20 91/55 95 02/13/20 04:20 123 H 02/13/20 04:19 125 H 02/13/20 04:10 122 H 38 H 112/60 95 02/13/20 04:07 123 H 02/13/20 04:03 100.2 F H 127 H 40 H 131/117 95 Intake and Output 02/12/20 02/13/20 02/13/20 22:59 06:59 14:59 Intake Total 190 Output Total 0 280 Balance 0 -90 Intake: IV 190 Sodium Chloride 0.9% 1, 190 000 ml @ 60 mls/hr IV . [id number] STA Rx#:[id number] Output: Urine 0 280 Other: # Voids 0 1 Weight 39.009 kg 39.009 kg PHYSICAL EXAM: VITAL SIGNS: As above GENERAL: Thin built, Sitting up in bed, on CPAP, respiratory effort increased HEENT: Conjunctivae normal. eyes normal. NECK: No JVD. No thyroid enlargement. No LNs CARDIOVASCULAR: S1, S2 regular. No murmur RESPIRATION: Significant course rhonchi, scattered crackles with expiratory wheezing bilaterally with decreased air entry. ABDOMEN: Soft, nontender . No guarding. no masses palpable. No ascites, No hepatosplenomegaly.Bowel sounds heard. LEGS: No edema. no swelling PSYCHIATRY: Alert and oriented X3, mood and affect normal. NERVOUS SYSTEM: Cranial N 2-12 grossly normal. Moves all 4 limbs. Generalized weakness, No focal deficits. Strength and sensation grossly intact.. Skin: no rash Lymphatic system. No LN neck axilla. Results CBC & Chem 7: 02/13/20 14:15 02/13/20 14:15 Labs: Abnormal Lab Results - Last 24 Hours (Table) 02/13/20 02/13/20 02/13/20 Range/Units 04:15 04:15 04:15 WBC 12.9 H (3.8-10.6) k/uL Neutrophils # (Manual) 10.70 H (1.3-7.7) k/uL Metamyelocytes # (Man) 0.26 H (0) k/uL Myelocytes # (Manual) 0.13 H (0) k/uL D-Dimer >35.20 H (<0.60) mg/L FEU Sodium 135 L (137-145) mmol/L BUN 20 H (7-17) mg/dL Creatinine 0.46 L (0.52-1.04) mg/dL Glucose 119 H (74-99) mg/dL POC Glucose (mg/dL) (75-99) mg/dL C-Reactive Protein 189.1 H (<10.0) mg/L Total Protein 5.9 L (6.3-8.2) g/dL 02/13/20 Range/Units 11:26 WBC (3.8-10.6) k/uL Neutrophils # (Manual) (1.3-7.7) k/uL Metamyelocytes # (Man) (0) k/uL Myelocytes # (Manual) (0) k/uL D-Dimer (<0.60) mg/L FEU Sodium (137-145) mmol/L BUN (7-17) mg/dL Creatinine (0.52-1.04) mg/dL Glucose (74-99) mg/dL POC Glucose (mg/dL) 127 H (75-99) mg/dL C-Reactive Protein (<10.0) mg/L Total Protein (6.3-8.2) g/dL Assessment and Plan Assessment: Acute on chronic hypoxic, hypercapnic respiratory failure secondary to end-stage COPD. And wears 2 L nasal cannula at home Extensive right lower lobe pneumonia, community-acquired, coronavirus being ruled out Acute COPD exacerbation Hemoptysis secondary to the above Abnormal, increasing in size abdominal aortic aneurysm, 5.2 cm, without evidence of rupture reported History of tubular adenomatous colonic polyps Hypotension Gastroesophageal reflux disease Hyperlipidemia Gastroesophageal reflux disease Plan: Continue on current medication regime ,monitoring and symptomatic treatment. Patient becoming increasingly fatigued, respiratory distress, hypotensive ,is being transferred into the ICU, CODE STATUS discussed with patient and daughter Renny. Patient requesting to be intubated, realizing that she will be a difficult wean. Aggressive pulmonary toileting, maintaining nebulized bronchodilators, IV steroids, IV antibiotics, Zosyn, vancomycin. Magnesium replacement protocol. CT reported abnormal abdominal aortic aneurysm, increasing in size, vascular surgery consulted. Prognosis guarded given multiple complex medical issues. The impression and plan of care has been dictated as directed. : I performed a history and examination of this patient, discussed the same with the dictator. I agree with the dictator's note ,documented as a scribe. Any additional findings or plans will be noted.
[2020-02-13] MEDS ORDERED: INSULIN ASPART (NovoLOG) 100 UNIT/ML VIAL SQ SCH (16:30)
[2020-02-13] MEDS: NOREPINEPHRINE 32 MG in SODIUM CHLORIDE 0.9% 218 ML IV SCH (16:32)
[2020-02-13 17:01] LABS: ABG Base Excess -5.1 mmol/L; ABG HCO3 23 mmol/L (21-25); ABG PCO2 62 mmHg (35-45); ABG PO2 84 mmHg (83-108); ABG TCO2 25 mmol/L (19-24)
[2020-02-13 17:04] LABS: ABG PH 7.18 (7.35-7.45); Allen Test Performed? no
--- NOTE | 2020-02-13 17:04 | XR ---
EXAMINATION TYPE: XR chest 1V portable DATE OF EXAM: 02/13/2020 COMPARISON: February 13, 2020 HISTORY: Check tube placement TECHNIQUE: Single view FINDINGS: Heart size is normal. There is some patchy airspace consolidation right lower lobe. There i s nasogastric tube in the stomach. Endotracheal tube is 6.5 cm from the kole. There is no heart amadeo lure. There is a minimal infiltrate left lung base. IMPRESSION: Bilateral lower lobe pneumonia much worse on the right side. Small right pleural effusion . No gross heart failure. No change compared to exam 2 hours ago. COPD.
[2020-02-13] MEDS: MAGNESIUM SULFATE-D5W PMX 1 GM in DEXTROSE/WATER 1 100ML.BAG IVPB SCH ×2 (17:32→18:47)
[2020-02-13] MEDS ORDERED: SODIUM BICARB 8.4% 50 ML SYR (1 MEQ/ML) IV STA (18:46)
[2020-02-13 21:07] LABS: Glucose,Whole Blood 131 mg/dL (75-99)
[2020-02-13] MEDS: CHLORHEXIDINE GLUCONATE 15 ML CUP MUCOUS MEM SCH (21:34)
[2020-02-14] MEDS: IPRATROPIUM-ALBUTEROL 3 ML NEB INHALATION SCH ×6 (00:11→18:08)
[2020-02-14 00:17] LABS: Glucose,Whole Blood 109 mg/dL (75-99)
[2020-02-14] MEDS: INSULIN ASPART (NovoLOG) 100 UNIT/ML VIAL SQ SCH ×4 (00:39→18:50)
--- NOTE | 2020-02-14 02:18 | PCN ---
PROCEDURE NOTE OPERATIVE REPORT: Placement of the right brachial arterial line. PREOPERATIVE DIAGNOSIS: Acute respiratory failure and pneumonia. POSTOPERATIVE DIAGNOSIS: Acute respiratory failure and pneumonia. ANESTHESIA USED: None deployed. PROCEDURE: The patient's right arm was placed on a table, patient was placed in a supine position, the area of the right brachial region was prepared in a sterile fashion and drapes were applied. The right brachial artery was palpated, cannulated, and a guidewire was placed. A Needish catheter was inserted over the guidewire, and the guidewire was removed. Good blood flow and good waveform noted: No evidence of any immediate complication. The line was secured using 3.0 silk sutures. MMODL / IJN: [id number] /
--- NOTE | 2020-02-14 02:24 | PCN ---
PROCEDURE NOTE OPERATIVE REPORT: Placement of the right femoral triple-lumen catheter. PREOPERATIVE DIAGNOSIS: Pneumonia, acute hypoxic respiratory failure, and hypotension. POSTOPERATIVE DIAGNOSIS: Pneumonia, acute hypoxic respiratory failure, and hypotension. ANESTHESIA USED: 2 mL of 1% lidocaine. PROCEDURE: The right groin was prepared in a sterile fashion and drapes were applied. The area was locally anesthetized with lidocaine. Then using the ultrasound, the right femoral vein was cannulated easily, and a guidewire was placed. An area around the guidewire was dilated using dilator. Then a triple-lumen catheter was inserted over the guidewire, and the guidewire was removed. Good blood flow was noted in the 3 different ports of the triple-lumen catheter. The line was secured using 3.0 silk sutures, and there was no evidence of any immediate complication. MMODL / IJN: [id number] /
[2020-02-14] MEDS: VANCOMYCIN 750 MG in SODIUM CHLORIDE 0.9% 250 ML IVPB SCH ×2 (03:22→20:26)
[2020-02-14] MEDS: NOREPINEPHRINE 32 MG in SODIUM CHLORIDE 0.9% 218 ML IV SCH (04:37)
[2020-02-14 05:07] LABS: HCT 36.3 % (34.0-46.0); HGB 11.4 gm/dL (11.4-16.0); Hypochromasia Marked; MCH 29.7 pg (25.0-35.0); MCHC 31.3 g/dL (31.0-37.0); Mean Platelet Volume 7.7; Platelet Count 202 k/uL (150-450); RBC 3.82 m/uL (3.80-5.40); RDW 14.3 % (11.5-15.5); WBC 5.7 k/uL (3.8-10.6)
[2020-02-14 05:16] LABS: African American GFR (CKD) >90 (>60 ml/min/1.73 sqM); Anion Gap 7 mmol/L; Blood Urea Nitrogen 19 mg/dL (7-17); Calcium 7.7 mg/dL (8.4-10.2); Carbon Dioxide 22 mmol/L (22-30); Chloride 111 mmol/L (98-107); Glucose 112 mg/dL (74-99); Magnesium 2.2 mg/dL (1.6-2.3); Non-African American GFR(CKD) >90 (>60 ml/min/1.73 sqM); Potassium 3.8 mmol/L (3.5-5.1); Sodium 140 mmol/L (137-145)
[2020-02-14 05:26] LABS: Neutrophils % (M) 8 %
[2020-02-14 05:29] LABS: Band Neutrophils % 75 %; Lymphocytes # (M) 0.23 k/uL (1.0-4.8); Metamyelocytes # (M) 0.57 k/uL (0); Metamyelocytes % 10 %; Monocytes # (M) 0.17 k/uL (0-1.0); Nucleated Red Blood Cells 0 /100 WBC (0-0); Total Cells Counted 200
[2020-02-14 05:30] LABS: Toxic Granulation Present; Toxic Vacuolation Present
[2020-02-14] MEDS ORDERED: POTASSIUM BICARBONATE/CIT AC 20 MEQ TABLET.EFF PO ONE (05:34)
[2020-02-14 06:38] LABS: Glucose,Whole Blood 111 mg/dL (75-99)
[2020-02-14] MEDS: SYMBICORT 160-4.5 MCG INHALER INHALATION SCH ×2 (07:14→18:33)
[2020-02-14 07:21] LABS: ABG Base Excess -5.2 mmol/L; ABG HCO3 23 mmol/L (21-25); ABG Oxygen Saturation 97.4 % (94-97); ABG PCO2 58 mmHg (35-45); ABG PO2 97 mmHg (83-108); ABG TCO2 25 mmol/L (19-24)
--- NOTE | 2020-02-14 07:59 | XR ---
EXAMINATION TYPE: XR chest 1V DATE OF EXAM: 02/14/2020 CLINICAL HISTORY: Difficulty breathing progress study. TECHNIQUE: Single AP portable semiupright view of the chest is obtained. COMPARISON: Chest x-ray and CTA chest from one day earlier. FINDINGS: Stable endotracheal and orogastric tubes. Current study shows increased right-sided rotati on. Osseous structures remain demineralized. Background underlying advanced emphysematous change with bibasilar opacities. Left basilar opacity progressed from prior. Cardiac silhouette size remains wit hin normal limits with atherosclerotic thoracic aorta. IMPRESSION: Advanced underlying emphysematous change with bibasilar acute infiltrate and/or atelectas is. Worsening left basilar findings noted since most recent studies.
[2020-02-14] MEDS: PIPERACILLIN-TAZOBACTAM 3.375 GM in SODIUM CHLORIDE 0.9% 100 ML IVPB SCH ×2 (08:01→15:09)
[2020-02-14] MEDS: CHLORHEXIDINE GLUCONATE 15 ML CUP MUCOUS MEM SCH ×2 (08:01→21:57)
[2020-02-14] MEDS: PANTOPRAZOLE 40 MG/10 ML VIAL IV SCH (08:01)
[2020-02-14] MEDS ORDERED: SODIUM CHLORIDE 0.9% 500 ML 500 ML IV ONE (08:25)
[2020-02-14] MEDS ORDERED: AZITHROMYCIN 500 MG TAB PO SCH (09:00)
[2020-02-14] MEDS: SODIUM CHLORIDE 0.9% 1,000 ML IV SCH ×2 (09:04→12:25)
[2020-02-14 10:04] VITALS: BMI 16.9
[2020-02-14 11:55] LABS: Glucose,Whole Blood 107 mg/dL (75-99)
--- NOTE | 2020-02-14 12:08 | P.PN ---
Subjective Progress Note Date: 02/14/20 Principal diagnosis: Acute hypoxic and hypercapnic respiratory failure secondary to right lower lobe pneumonia and COPD exacerbation. This is an 80-year-old female with history of severe end-stage COPD, oxygen dependent, maintained on 2 L nasal cannula 14/02, normally followed up with Dr. López on a regular basis for her underlying COPD patient saw Dr. López last on 02/12/20, and she was basically complaining of shortness of breath cough, wheezing, she was on maintenance prednisone of 10 mg daily, and she was on wixela and Spiriva. Patient was given Depo-Medrol 80 mg IM and placed on prednisone at 40 mg to be tapered down gradually to her usual dose which is 10 mg maintenance. However the patient's condition did not improve much, today the patient ended up in the emergency room complaining of worsening pulmonary symptoms. Chest x-ray and CT angiogram of the chest showed extensive right lower lobe pneumonia. Patient was admitted, started on antibiotics, bron chodilators, steroids, and I was asked to see her on consultation. Upon evaluating the patient, patient was noted to be in moderate respiratory distress, she was on BiPAP, and she was noted to be quite dyspneic. And on physical examination she has diffuse crackles and rhonchi and wheezes. Conside ring her underlying severe COPD and considering the patient is extremely marginal, I went ahead and transfer the patient to the ICU. According to the patient and her daughter, the patient has been experiencing worsening cough, no fever, no chills, but her cough has been productive and sputum has been blood- tinged. Patient has been compliant with all the medications and bronchodilators that she was supposed to be on denies any exposure to any one with covid, however the patient was tested, and PCR is pending Patient was reevaluated today on 02/14/20, patient developed worsening pulmonary status yesterday,Intubated and mechanically ventilated. She is presently on assist control rate of 26 tidal volume of 320 FiO2 60% and PEEP of 5. ABG showed a pO2 of 97 pCO2 of 58 pH of 7.20, hence the assist control rate was increased to 32, tidal volume increased to 350, and FiO2 decreased to 50%. Chest x-ray continues to show bilateral infiltrates, right more so than left. Patient is to be started on enteral feeding today. She remains on vancomycin and Zosyn, cultures are pending. Patient is maintained on propofol at 40 mcg/kg/m, norepinephrine at 0.03 mcg/kg/m. She is also on IV fluid of 0.9 normal saline at 75 mL per hour. Basic metabolic profile is normal. WBC count is 5.7 hemoglobin is 11.4. Patient tested negative by PCR for Covid 19. Objective - Vital Signs Vital signs: Vital Signs Temp 100.3 F H 02/14/20 08:00 Pulse 104 H 02/14/20 11:56 Resp 32 H 02/14/20 11:30 BP 89/46 02/14/20 11:30 Pulse Ox 98 02/14/20 11:30 Intake & Output 02/13/20 02/14/20 02/14/20 18:59 06:59 18:59 Intake Total 9436.660 0099.522 1211.108 Output Total 660 550 60 Balance 906.207 681.573 2660.108 Weight 39.009 kg 43.3 kg 43.3 kg Intake: IV 1565 1125 425 Magnesium Sulfate-D5w Pmx 100 1 gm In Dextrose/Water 1 100ml.bag @ 100 mls/hr IVPB Q1H [facility] Rx#: [id number] Piperacillin-Tazobactam 3 200 100 .375 gm In Sodium Chloride 0.9% 100 ml @ 25 mls/hr IVPB Q8HR [facility] Rx# :[id number] Sodium Chloride 0.9% 1, 1565 825 75 000 ml @ 75 mls/hr IV . [id number] [facility] Rx#:[id number] Vancomycin 750 mg In 250 Sodium Chloride 0.9% 250 ml @ 125 mls/hr IVPB ONCE ONE Rx#:[id number] Intake, IV Titration 1.207 90.522 786.108 Amount Norepinephrine 32 mg In 0.427 19.173 3.339 Sodium Chloride 0.9% 218 ml @ 0.05 MCG/KG/MIN 0. 914 mls/hr IV .Q24H [facility] Rx#:[id number] Sodium Chloride 0.9% 1, 250 000 ml @ 125 mls/hr IV . Q8H [facility] Rx#:[id number] Sodium Chloride 0.9% 500 500 ml 500 ml @ 999 mls/hr IV .Q31M [facility] Rx#:[id number] propofoL 1,000 mg In 0.78 71.349 32.769 Empty Bag 1 bag @ Titrate IV .Q0M [facility] Rx#: [id number] Output: Gastric Drainage 100 Urine 660 450 60 Other: Voiding Method Indwelling Catheter Indwelling Catheter Indwelling Catheter # Voids 1 ABP, PAP, CO, CI - Last Documented Arterial Blood Pressure 119/41 - Exam Physical Exam: Revealed 80-year-old female on mechanical ventilation, sedated, and in no distress. Head: Atraumatic, normocephalic, endotracheal tube and orogastric tube are intact. Chest: [Crackles at the bases, no rhonchi no wheezes.] Symmetrical chest expansion. Cardiac Exam: [Normal S1 and S2, no S3 gallop, no murmur.] Abdomen: [Soft, nontender, no megaly, no rebound, no guarding, normal bowel sounds.] Extremities: [No clubbing, no edema, no cyanosis.] Neurological Exam: Could not be assessed today, patient is on propofol. And not ready for sedation holidays today. Skin: No rashes. Psychiatric: Cannot be assessed. Patient is maintained on propofol. Lymphatics: No lymphadenopathy - Labs CBC & Chem 7: 02/14/20 04:40 02/14/20 04:40 Labs: Abnormal Lab Results - Last 24 Hours (Table) 02/13/20 02/13/20 02/13/20 Range/Units 04:15 14:14 14:15 MCHC (31.0-37.0) g/dL Lymphocytes # (Manual) (1.0-4.8) k/uL Metamyelocytes # (Man) (0) k/uL Myelocytes # (Manual) (0) k/uL D-Dimer 11.64 H (<0.60) mg/L FEU ABG pH 7.15 L* (7.35-7.45) ABG pCO2 77 H* (35-45) mmHg ABG pO2 227 H (83-108) mmHg ABG HCO3 27 H (21-25) mmol/L ABG Total CO2 29 H (19-24) mmol/L ABG O2 Saturation 99.3 H (94-97) % Chloride (98-107) mmol/L BUN (7-17) mg/dL Creatinine (0.52-1.04) mg/dL Glucose (74-99) mg/dL POC Glucose (mg/dL) (75-99) mg/dL Calcium (8.4-10.2) mg/dL Phosphorus (2.5-4.5) mg/dL C-Reactive Protein (<10.0) mg/L Total Protein (6.3-8.2) g/dL Albumin (3.5-5.0) g/dL Procalcitonin 0.71 H (0.02-0.09) ng/mL 02/13/20 02/13/20 02/13/20 Range/Units 14:15 14:15 15:23 MCHC 30.9 L (31.0-37.0) g/dL Lymphocytes # (Manual) 0.28 L (1.0-4.8) k/uL Metamyelocytes # (Man) 0.56 H (0) k/uL Myelocytes # (Manual) 0.22 H (0) k/uL D-Dimer (<0.60) mg/L FEU ABG pH 7.10 L* (7.35-7.45) ABG pCO2 80 H* (35-45) mmHg ABG pO2 268 H (83-108) mmHg ABG HCO3 (21-25) mmol/L ABG Total CO2 27 H (19-24) mmol/L ABG O2 Saturation 99.6 H (94-97) % Chloride (98-107) mmol/L BUN 19 H (7-17) mg/dL Creatinine 0.48 L (0.52-1.04) mg/dL Glucose 131 H (74-99) mg/dL POC Glucose (mg/dL) (75-99) mg/dL Calcium 7.9 L (8.4-10.2) mg/dL Phosphorus 4.8 H (2.5-4.5) mg/dL C-Reactive Protein 306.0 H (<10.0) mg/L Total Protein 4.7 L (6.3-8.2) g/dL Albumin 2.7 L (3.5-5.0) g/dL Procalcitonin (0.02-0.09) ng/mL 02/13/20 02/13/20 02/14/20 Range/Units 16:52 21:06 00:15 MCHC (31.0-37.0) g/dL Lymphocytes # (Manual) (1.0-4.8) k/uL Metamyelocytes # (Man) (0) k/uL Myelocytes # (Manual) (0) k/uL D-Dimer (<0.60) mg/L FEU ABG pH 7.18 L* (7.35-7.45) ABG pCO2 62 H (35-45) mmHg ABG pO2 (83-108) mmHg ABG HCO3 (21-25) mmol/L ABG Total CO2 25 H (19-24) mmol/L ABG O2 Saturation (94-97) % Chloride (98-107) mmol/L BUN (7-17) mg/dL Creatinine (0.52-1.04) mg/dL Glucose (74-99) mg/dL POC Glucose (mg/dL) 131 H 109 H (75-99) mg/dL Calcium (8.4-10.2) mg/dL Phosphorus (2.5-4.5) mg/dL C-Reactive Protein (<10.0) mg/L Total Protein (6.3-8.2) g/dL Albumin (3.5-5.0) g/dL Procalcitonin (0.02-0.09) ng/mL 02/14/20 02/14/20 02/14/20 Range/Units 04:40 04:40 06:36 MCHC (31.0-37.0) g/dL Lymphocytes # (Manual) 0.23 L (1.0-4.8) k/uL Metamyelocytes # (Man) 0.57 H (0) k/uL Myelocytes # (Manual) (0) k/uL D-Dimer (<0.60) mg/L FEU ABG pH (7.35-7.45) ABG pCO2 (35-45) mmHg ABG pO2 (83-108) mmHg ABG HCO3 (21-25) mmol/L ABG Total CO2 (19-24) mmol/L ABG O2 Saturation (94-97) % Chloride 111 H (98-107) mmol/L BUN 19 H (7-17) mg/dL Creatinine 0.47 L (0.52-1.04) mg/dL Glucose 112 H (74-99) mg/dL POC Glucose (mg/dL) 111 H (75-99) mg/dL Calcium 7.7 L (8.4-10.2) mg/dL Phosphorus (2.5-4.5) mg/dL C-Reactive Protein (<10.0) mg/L Total Protein (6.3-8.2) g/dL Albumin (3.5-5.0) g/dL Procalcitonin (0.02-0.09) ng/mL 02/14/20 02/14/20 Range/Units 07:00 11:54 MCHC (31.0-37.0) g/dL Lymphocytes # (Manual) (1.0-4.8) k/uL Metamyelocytes # (Man) (0) k/uL Myelocytes # (Manual) (0) k/uL D-Dimer (<0.60) mg/L FEU ABG pH 7.20 L (7.35-7.45) ABG pCO2 58 H (35-45) mmHg ABG pO2 (83-108) mmHg ABG HCO3 (21-25) mmol/L ABG Total CO2 25 H (19-24) mmol/L ABG O2 Saturation 97.4 H (94-97) % Chloride (98-107) mmol/L BUN (7-17) mg/dL Creatinine (0.52-1.04) mg/dL Glucose (74-99) mg/dL POC Glucose (mg/dL) 107 H (75-99) mg/dL Calcium (8.4-10.2) mg/dL Phosphorus (2.5-4.5) mg/dL C-Reactive Protein (<10.0) mg/L Total Protein (6.3-8.2) g/dL Albumin (3.5-5.0) g/dL Procalcitonin (0.02-0.09) ng/mL Microbiology - Last 24 Hours (Table) 02/13/20 02:30 Blood Culture Gram Stain - Preliminary Blood 02/14/20 00:32 Sputum Culture - Preliminary Sputum 02/13/20 11:15 Gram Stain - Preliminary Sputum Sputum Culture - Preliminary Assessment and Plan Assessment: Impression: Acute on chronic hypoxic respiratory failure secondary to extensive right lower lobe pneumonia and acute exacerbation of COPD. Requiring intubation and mechanical ventilation. Acute right lower lobe pneumonia, community-acquired. Hemoptysis secondary to right lower lobe pneumonia. Acute exacerbation of COPD. Abdominal aortic aneurysm History of tubular adenoma and colonic polyps. Dyslipidemia. Recommendation: Continue ventilatory support. Continue antibiotics empirically and adjust accordingly once the cultures are available. Continue enteral feeding/nutritional support. Continue GI and DVT prophylaxis. Continue bronchodilators IV steroids/Solu-Medrol. Continue updrafts. CODE STATUS remains full. Prognosis is extremely poor. Critical care time is 35 minutes We'll continue to follow. Time with Patient: Greater than 30
--- NOTE | 2020-02-14 13:47 | P.PN ---
Subjective Progress Note Date: 02/14/20 This is an 80-year-old female with end-stage COPD and multiple other medical issues. Patient had become short of breath on Tuesday, followed up with her production control specialist Dr. López yesterday and steadily worsened with fever 102.3 this morning and daughter brought her into the ER. Daughter reports patient was having bright red hemoptysis, thick green-yellow sputum.chest CT reported extensive right lower lobe pneumonia with no evidence of PE, increased aneurysm 5.[address] angiogram of the thorax and pelvis reported 5.2 cm abnormal aneurysm in the infrarenal abdominal aorta without signs of rupture. Maintained on IV antibiotics, IV steroids, BiPAP with O2 sats in the 90s. T-max 100.2, WBC elevated at 12.9. BUN/Creatinine 20/0.46. C-reactive protein 189.1 now increased to 306, LDH 452 prior calcitonin 0.71. Lactic acid 1.3 , INR 1.1, d- dimer greater than 35.2, now down to 11.64.Magnesium 1.7. Hemoglobin 12.4, platelets 200 02/14/2020 patient transferred into the ICU yesterday, BiPAP increased to 85%, patient's pulmonary status continued to worsen with patient tiring and required intubation. Maintained on mechanical ventilation with FiO2 60/+5 of PEEP, sedated on to prevent. Receiving gentle IV fluid hydration. Pressor dependent on Levophed .Telemetry sinus tachycardia. ABG noted, further vent changes pending, including decreasing FiO2 to 50%. Chest x-ray reporting bilateral in filtrates, distance underlying emphysematous change, worsening left basilar findings. T-max 100.3, WBC normal. BUN 19 creatinine 0.47, blood sugars controlled. Hemoglobin 11.4. Potassium 3.8, magnesium 2.2. Coronavirus not detected. Continues on vancomycin and Zosyn. Objective - Vital Signs Vital signs: Vital Signs Temp 100.3 F H 02/14/20 08:00 Pulse 114 H 02/14/20 08:00 Resp 30 H 02/14/20 08:00 BP 105/52 02/14/20 08:00 Pulse Ox 98 02/14/20 08:00 Intake & Output 02/13/20 02/14/20 02/14/20 18:59 06:59 18:59 Intake Total 5350.909 0993.522 361.108 Output Total 660 550 20 Balance 906.207 665.522 341.108 Weight 39.009 kg 43.3 kg Intake: IV 1565 1125 325 Magnesium Sulfate-D5w Pmx 100 1 gm In Dextrose/Water 1 100ml.bag @ 100 mls/hr IVPB Q1H [facility] Rx#: [id number] Piperacillin-Tazobactam 3 200 .375 gm In Sodium Chloride 0.9% 100 ml @ 25 mls/hr IVPB Q8HR [facility] Rx# :[id number] Sodium Chloride 0.9% 1, 1565 825 75 000 ml @ 75 mls/hr IV . [id number] [facility] Rx#:[id number] Vancomycin 750 mg In 250 Sodium Chloride 0.9% 250 ml @ 125 mls/hr IVPB ONCE ONE Rx#:[id number] Intake, IV Titration 1.207 90.522 36.108 Amount Norepinephrine 32 mg In 0.427 19.173 3.339 Sodium Chloride 0.9% 218 ml @ 0.05 MCG/KG/MIN 0. 914 mls/hr IV .Q24H [facility] Rx#:[id number] propofoL 1,000 mg In 0.78 71.349 32.769 Empty Bag 1 bag @ Titrate IV .Q0M [facility] Rx#: [id number] Output: Gastric Drainage 100 Urine 660 450 20 Other: Voiding Method Indwelling Catheter Indwelling Catheter Indwelling Catheter # Voids 1 ABP, PAP, CO, CI - Last Documented Arterial Blood Pressure 129/41 - Exam PHYSICAL EXAM: VITAL SIGNS: As above GENERAL: Thin built, lying in bed, intubated on mechanical ventilation, sedated HEENT: Conjunctivae normal. eyes normal. NECK: No JVD. No thyroid enlargement. No LNs CARDIOVASCULAR: S1, S2 regular. No murmur RESPIRATION: Respiratory effort controlled, bilateral bases diminished with basilar crackles ABDOMEN: Soft, nontender . No guarding. no masses palpable.Bowel sounds heard. LEGS: No edema. no swelling NERVOUS SYSTEM: Unable to assess, intubated and sedated Skin: no rash - Labs CBC & Chem 7: 02/14/20 04:40 02/14/20 04:40 Labs: Abnormal Lab Results - Last 24 Hours (Table) 02/13/20 02/13/20 02/13/20 Range/Units 04:15 11:26 14:14 MCHC (31.0-37.0) g/dL Lymphocytes # (Manual) (1.0-4.8) k/uL Metamyelocytes # (Man) (0) k/uL Myelocytes # (Manual) (0) k/uL D-Dimer (<0.60) mg/L FEU ABG pH 7.15 L* (7.35-7.45) ABG pCO2 77 H* (35-45) mmHg ABG pO2 227 H (83-108) mmHg ABG HCO3 27 H (21-25) mmol/L ABG Total CO2 29 H (19-24) mmol/L ABG O2 Saturation 99.3 H (94-97) % Chloride (98-107) mmol/L BUN (7-17) mg/dL Creatinine (0.52-1.04) mg/dL Glucose (74-99) mg/dL POC Glucose (mg/dL) 127 H (75-99) mg/dL Calcium (8.4-10.2) mg/dL Phosphorus (2.5-4.5) mg/dL C-Reactive Protein (<10.0) mg/L Total Protein (6.3-8.2) g/dL Albumin (3.5-5.0) g/dL Procalcitonin 0.71 H (0.02-0.09) ng/mL 02/13/20 02/13/20 02/13/20 Range/Units 14:15 14:15 14:15 MCHC 30.9 L (31.0-37.0) g/dL Lymphocytes # (Manual) 0.28 L (1.0-4.8) k/uL Metamyelocytes # (Man) 0.56 H (0) k/uL Myelocytes # (Manual) 0.22 H (0) k/uL D-Dimer 11.64 H (<0.60) mg/L FEU ABG pH (7.35-7.45) ABG pCO2 (35-45) mmHg ABG pO2 (83-108) mmHg ABG HCO3 (21-25) mmol/L ABG Total CO2 (19-24) mmol/L ABG O2 Saturation (94-97) % Chloride (98-107) mmol/L BUN 19 H (7-17) mg/dL Creatinine 0.48 L (0.52-1.04) mg/dL Glucose 131 H (74-99) mg/dL POC Glucose (mg/dL) (75-99) mg/dL Calcium 7.9 L (8.4-10.2) mg/dL Phosphorus 4.8 H (2.5-4.5) mg/dL C-Reactive Protein 306.0 H (<10.0) mg/L Total Protein 4.7 L (6.3-8.2) g/dL Albumin 2.7 L (3.5-5.0) g/dL Procalcitonin (0.02-0.09) ng/mL 02/13/20 02/13/20 02/13/20 Range/Units 15:23 16:52 21:06 MCHC (31.0-37.0) g/dL Lymphocytes # (Manual) (1.0-4.8) k/uL Metamyelocytes # (Man) (0) k/uL Myelocytes # (Manual) (0) k/uL D-Dimer (<0.60) mg/L FEU ABG pH 7.10 L* 7.18 L* (7.35-7.45) ABG pCO2 80 H* 62 H (35-45) mmHg ABG pO2 268 H (83-108) mmHg ABG HCO3 (21-25) mmol/L ABG Total CO2 27 H 25 H (19-24) mmol/L ABG O2 Saturation 99.6 H (94-97) % Chloride (98-107) mmol/L BUN (7-17) mg/dL Creatinine (0.52-1.04) mg/dL Glucose (74-99) mg/dL POC Glucose (mg/dL) 131 H (75-99) mg/dL Calcium (8.4-10.2) mg/dL Phosphorus (2.5-4.5) mg/dL C-Reactive Protein (<10.0) mg/L Total Protein (6.3-8.2) g/dL Albumin (3.5-5.0) g/dL Procalcitonin (0.02-0.09) ng/mL 02/14/20 02/14/20 02/14/20 Range/Units 00:15 04:40 04:40 MCHC (31.0-37.0) g/dL Lymphocytes # (Manual) 0.23 L (1.0-4.8) k/uL Metamyelocytes # (Man) 0.57 H (0) k/uL Myelocytes # (Manual) (0) k/uL D-Dimer (<0.60) mg/L FEU ABG pH (7.35-7.45) ABG pCO2 (35-45) mmHg ABG pO2 (83-108) mmHg ABG HCO3 (21-25) mmol/L ABG Total CO2 (19-24) mmol/L ABG O2 Saturation (94-97) % Chloride 111 H (98-107) mmol/L BUN 19 H (7-17) mg/dL Creatinine 0.47 L (0.52-1.04) mg/dL Glucose 112 H (74-99) mg/dL POC Glucose (mg/dL) 109 H (75-99) mg/dL Calcium 7.7 L (8.4-10.2) mg/dL Phosphorus (2.5-4.5) mg/dL C-Reactive Protein (<10.0) mg/L Total Protein (6.3-8.2) g/dL Albumin (3.5-5.0) g/dL Procalcitonin (0.02-0.09) ng/mL 02/14/20 02/14/20 Range/Units 06:36 07:00 MCHC (31.0-37.0) g/dL Lymphocytes # (Manual) (1.0-4.8) k/uL Metamyelocytes # (Man) (0) k/uL Myelocytes # (Manual) (0) k/uL D-Dimer (<0.60) mg/L FEU ABG pH 7.20 L (7.35-7.45) ABG pCO2 58 H (35-45) mmHg ABG pO2 (83-108) mmHg ABG HCO3 (21-25) mmol/L ABG Total CO2 25 H (19-24) mmol/L ABG O2 Saturation 97.4 H (94-97) % Chloride (98-107) mmol/L BUN (7-17) mg/dL Creatinine (0.52-1.04) mg/dL Glucose (74-99) mg/dL POC Glucose (mg/dL) 111 H (75-99) mg/dL Calcium (8.4-10.2) mg/dL Phosphorus (2.5-4.5) mg/dL C-Reactive Protein (<10.0) mg/L Total Protein (6.3-8.2) g/dL Albumin (3.5-5.0) g/dL Procalcitonin (0.02-0.09) ng/mL Microbiology - Last 24 Hours (Table) 02/13/20 11:15 Gram Stain - Preliminary Sputum Sputum Culture - Preliminary Assessment and Plan Assessment: Acute on chronic hypoxic, hypercapnic respiratory failure secondary to end-stage COPD, bilateral pneumonia, ventilator dependent Bilateral pneumonia with Extensive right lower lobe pneumonia, community- acquired, coronavirus being ruled out. Hypotension secondary to the above, pressor dependent Acute COPD exacerbation Hemoptysis secondary to the above Abnormal, increasing in size abdominal aortic aneurysm, 5.2 cm, without evidence of rupture reported History of tubular adenomatous colonic polyps Hypotension Gastroesophageal reflux disease Hyperlipidemia Gastroesophageal reflux disease Plan: Continue on current medication regime ,monitoring and symptomatic treatment. ICU management as per geodesy teacher. Evaluated by vascular surgery with recommendations noted and appreciated. Maintained on nebulized bronchodilators, IV steroids, IV antibiotics. Prognosis guarded given multiple complex medical issues. The impression and plan of care has been dictated as directed. : I performed a history and examination of this patient, discussed the same with the dictator. I agree with the dictator's note ,documented as a scribe. Any additional findings or plans will be noted.
[2020-02-14 18:23] LABS: Glucose,Whole Blood 112 mg/dL (75-99)
[2020-02-14] MEDS ORDERED: SODIUM CHLORIDE 0.9% 1,000 ML IV ONE (18:49)
[2020-02-14 23:59] LABS: Glucose,Whole Blood 169 mg/dL (75-99)
[2020-02-15] MEDS: INSULIN ASPART (NovoLOG) 100 UNIT/ML VIAL SQ SCH ×2 (00:01→07:46)
[2020-02-15] MEDS: PIPERACILLIN-TAZOBACTAM 3.375 GM in SODIUM CHLORIDE 0.9% 100 ML IVPB SCH (00:02)
[2020-02-15] MEDS: SODIUM CHLORIDE 0.9% 1,000 ML IV SCH (00:06)
[2020-02-15] MEDS: IPRATROPIUM-ALBUTEROL 3 ML NEB INHALATION SCH ×3 (00:24→08:29)
--- NOTE | 2020-02-15 04:48 | XR ---
EXAMINATION TYPE: XR chest 1V DATE OF EXAM: 02/15/2020 COMPARISON: Yesterday HISTORY: Short of breath. TECHNIQUE: Single view FINDINGS: There is a large right-sided pneumothorax. Trachea is deviated slightly to the left side. There is nasogastric tube. Endotracheal tube is 5 cm from the kole in good position. There is more than 80% right-sided pneumothorax. There is infiltrates in both lower lobes. There is no gross heart failure. IMPRESSION: There is a large right-sided tension pneumothorax. This exam was discussed with the patient's nurse o n the floor at 4:45 AM. Bilateral lower lobe pneumonia unchanged.
[2020-02-15] MEDS ORDERED: MORPHINE SULFATE (100 MG/2 ML) 100 MG in SODIUM CHLORIDE 0.9% 100 ML IV SCH (05:00)
[2020-02-15 05:14] VITALS: TEMP 100.1
[2020-02-15 06:25] LABS: Calcium 7.5 mg/dL (8.4-10.2); Potassium 4.1 mmol/L (3.5-5.1)
[2020-02-15 06:45] VITALS: BP 134/92; PULSE 117; RESP 5
[2020-02-15 06:49] LABS: Anisocytosis Slight; Basophils % (A) 0 %; Eosinophils % (A) 0 %; HCT 34.8 % (34.0-46.0); HGB 11.8 gm/dL (11.4-16.0); Lymphocytes # (A) 0.7 k/uL (1.0-4.8); Lymphocytes % (A) 12 %; Mean Platelet Volume 8.1; Monocytes # (A) 0.2 k/uL (0-1.0); Monocytes % (A) 3 %; Neutrophils # (A) 4.9 k/uL (1.3-7.7); Neutrophils % (A) 82 %; Poikilocytosis Slight; RBC 3.82 m/uL (3.80-5.40); RDW 17.3 % (11.5-15.5)
[2020-02-15 07:24] LABS: Polychromasia Present
[2020-02-15 07:25] LABS: Platelet Count 88 k/uL (150-450)
[2020-02-15] MEDS: SYMBICORT 160-4.5 MCG INHALER INHALATION SCH (08:29)
[2020-02-15] MEDS ORDERED: VANCOMYCIN TROUGH DUE 1 EACH MISC MISCELLANE ONE (11:00)
--- NOTE | 2020-02-18 07:07 | CDI ---
Documentation Clarification Form Date: 02/18/20 From: Lucia Little Phone: If you have a question about this query, please contact Gabi Rao, [employer] at [phone] between 8am and 5pm. Admit Date: 02/13/20 Discharge Date: 02/15/20 Patient Name: TAISHA WILCOX Visit Number: [id number] ATTENTION: The Clinical Documentation Specialists (CDI) and [facility] Coding Staff appreciate your assistance in clarifying documentation. Please respond to the clarification below the line at the bottom and electronically sign. The CDI & [facility] Coding staff will review the response and follow-up if needed. Please note: Queries are made part of the Legal Health Record. If you have any questions, please contact the author of this message via ITS. Dear Dr. Viet Tam, Pneumonia was documented in ED notes, H&P, consults, procedure notes and progress notes. History/Risk Factors: End-stage COPD, O2 dependent, hx colon ca, former smoker Clinical Indicators: Acute on chronic hypoxic, hypercapnic respiratory failure secondary to end-stage COPD with extensive right lower lob pneumonia with hemoptysis. Vital signs: T-100.2, zP-127, R-40, BP-131/117, O2 sat on BIPAP-95 WBC/Left shift: 12.9/10.70 X-ray: Bilateral lower lobe pneumonia appears new compared to old exam. Lung/Breathing assessment: Shortness of breath, accessory muscle use, thick green-yellow sputum Treatment: IV Zithromax, IV Zoysn, IV Tobramycin, IV Vanocmycin, IV fluids, nebulizer Bipap then switched to Mechanical ventilation Sputum culture-Pseudomonas aeruginosa In order to capture the severity of condition, please clarify if the condition signifies and you are treating for: Due to Pseudomonas aeruginosa Healthcare Acquired Pneumonia/Pneumonia, unspecified Other, please specify Unable to determine patient was hospitalized with a Pseudomonas pneumonia. However later developed an aspiration hospital-acquired pneumonia MTDD
--- NOTE | 2020-02-18 07:17 | CDI ---
Documentation Clarification Form Date: 02/18/20 From: Lucia Little Phone: If you have a question about this query, please contact Gabi Rao, [employer] at [phone] between 8am and 5pm. Admit Date: 02/13/20 Discharge Date: 02/15/20 Patient Name: TAISHA WILCOX Visit Number: [id number] ATTENTION: The Clinical Documentation Specialists (CDI) and [facility] Coding Staff appreciate your assistance in clarifying documentation. Please respond to the clarification below the line at the bottom and electronically sign. The CDI & [facility] Coding staff will review the response and follow-up if needed. Please note: Queries are made part of the Legal Health Record. If you have any questions, please contact the author of this message via ITS. Dear Dr. Viet Tam, The patient presented with right lower lobe pneumonia w hemoptysis, decompensated end-stage COPD with exacerbation and acute on chronic hypoxic, hypercapnic respiratory failure. History/Risk Factors: O2 dependent, hx colon ca, former smoker Clinical Indicators: Shortness of breath, accessory muscle use, thick green- yellow sputum, hypotensive WBC: 12.9/10.70 Lactic acid:1.3 CRP-189.1/306.0 Procalcitonin: 0.71 Blood cultures: Pseudomonas aeruginosa Vitals signs on admission: T-100.2, zP-127, R-40, BP-131/117, O2 sat on BIPAP-95 Treatment: IV Zithromax, IV Zoysn, IV Tobramycin, IV Vanocmycin, IV fluids, nebulizer, vasopressor In your professional opinion, please clarify if these findings signify one of the following conditions, whether the condition is POA, and cause, if known: 1. Condition Sepsis ruled out Sepsis Severe Sepsis Septic Shock Other, please specify Unable to determine 2. Present on Admission Yes No 3. Identify the (suspected) organism 4. Link or clarify if there is associated (due to/with): Organ failure Shock SIRS Criteria (2 or more of the following may indicate SIRS): -Temperature < 96.8F (36C) or > 101.0F (38.3C) -Heart Rate > 90 bpm -Respiratory Rate > 20 breaths/min or PaCO2 < 32 mmHg -White Blood Cell Count > 12,000 or < 4,000 cells/mm3 or > 10% bands -Lactate >2.0 mmol/L (>4.0 is equivalent to septic shock) MTDD
--- NOTE | 2020-02-18 07:27 | CDI ---
Documentation Clarification Form Date: 02/18/20 From: Lucia Little Phone: If you have a question about this query, please contact Gabi Rao, Consulting Sales Executive at [phone] between 8am and 5pm. Admit Date: 02/13/20 Discharge Date: 02/15/20 Patient Name: TAISHA WILCOX Visit Number: [id number] ATTENTION: The Clinical Documentation Specialists (CDI) and [facility] Coding Staff appreciate your assistance in clarifying documentation. Please respond to the clarification below the line at the bottom and electronically sign. The CDI & [facility] Coding staff will review the response and follow-up if needed. Please note: Queries are made part of the Legal Health Record. If you have any questions, please contact the author of this message via ITS. Dear Dr. Viet Tam, Cachexia, frail and chronically ill has been documented in Dr Fernandez's consult. History/Risk Factors: End-stage COPD, O2 dependent, hx colon ca, former smoker Clinical Indicators: Acute on chronic hypoxic, hypercapnic respiratory failure secondary to end-stage COPD with extensive right lower lob pneumonia with hemoptysis. Labs: Current BMI: 16.9 Dietary Consult: Under weight. Will initiate EN per Dr Fernandez, Vital 1.2 at 36 ml/hr, free water flush 30 ml every 4 hours Supplements: Enteral nutrition formulary via OG tube Total protein: 5.9/4.7 Albumin: 3.7/2.7 In your professional opinion, can you please clarify if these findings signify one of the following conditions? Mild Protein-Calorie Malnutrition Moderate Protein-Calorie Malnutrition Severe Protein-Calorie Malnutrition Malnutrition, unspecified Other condition, please specify Unable to determine MTDD
[2020-02-25 15:32] LABS: LD Isoenzymes 1 27 % (19-38); LD Isoenzymes 2 31 % (30-43); LD Isoenzymes 3 19 % (16-26); LD Isoenzymes 4 8 % (3-12); LD Isoenzymes 5 15 % (3-14); Lactacte Dehydrogenase(LD) ISO 146 U/L (120-250)
--- NOTE | 2020-03-06 22:27 | P.DS ---
Providers Date of admission: 02/13/20 05:02 Expected date of discharge: 02/15/20 Attending physician: Viet Tam Consults: 02/13/20 05:02 Consult Physician Routine Consulting Provider: Jeff López Consult Reason/Comments: known Do you want consulting provider notified?: Yes 02/13/20 11:13 Consult Physician Routine Consulting Provider: Jenelle Pate Consult Reason/Comments: AAA incr to 5.2 cm Do you want consulting provider notified?: Yes Primary care physician: Viet Tam - Discharge Diagnosis(es) (1) Sepsis with multiple organ dysfunction (MOD) Status: Acute (2) Moderate protein-calorie malnutrition Status: Acute (3) Acute exacerbation of chronic obstructive airways disease Status: Acute (4) Bilateral pneumonia Status: Acute (5) Decompensated COPD with exacerbation (chronic obstructive pulmonary disease) Status: Acute (6) Dehydration Status: Acute Hospital Course: patient presented with community-acquired pneumon present on admission and severe sepsis and respiratory failure DUE to end-stage COPD. She was admitted initial to the ICU and then intubated. Her hospital course was complicated by organ involvement. Inpatient developed aspiration and was subsequently made no code and no CPR and terminal wean. She February 14 at 6:30 AM. Patient Condition at Discharge: Serious Plan - Discharge Summary New Discharge Prescriptions: No Action Pravastatin Sodium [Pravachol] 20 mg PO HS Tiotropium [place] [Spiriva] 1 cap INHALATION RT-DAILY Multivitamin [Multivitamins Adult Gummies] 1 tab PO DAILY Cholecalciferol [Vitamin D3 (25 Mcg = 1000 Iu)] 1,000 unit PO DAILY Albuterol Sulfate [Albuterol Sulfate Hfa] 1 - 2 puff PO RT-Q4H PRN PRN Reason: Shortness Of Breath predniSONE 10 mg PO DAILY Fluticasone Propion/Salmeterol [Wixela 500-50 Inhub] 1 puff INHALATION RT-BID Discharge Medication List Pravastatin Sodium [Pravachol] 20 mg PO HS 11/10/14 [History] Tiotropium [place] [Spiriva] 1 cap INHALATION RT-DAILY 11/10/14 [History] Albuterol Sulfate [Albuterol Sulfate Hfa] 1 - 2 puff PO RT-Q4H PRN 02/13/20 [History] Cholecalciferol [Vitamin D3 (25 Mcg = 1000 Iu)] 1,000 unit PO DAILY 02/13/20 [History] Fluticasone Propion/Salmeterol [Wixela 500-50 Inhub] 1 puff INHALATION RT-BID 02/13/20 [History] Multivitamin [Multivitamins Adult Gummies] 1 tab PO DAILY 02/13/20 [History] predniSONE 10 mg PO DAILY 02/13/20 [History] Follow up Appointment(s)/Referral(s): None,Stated [REFERRING] - 1-2 days Discharge Disposition: - Preliminary Cause of Preliminary Cause of : see discharge diagnoses
== END 2020-02-15 09:43 | disposition expired | DRG 871 ==
LOC: EC 03:55 → 3SCARD 05:02 → 2SICU 11:15
PROVIDERS: ADMIT Family Medicine; ATTEND Family Medicine
PROC: 4A133B1 Monitoring of Arterial Pressure, Peripheral, Percutaneous Approach (ICD-10-PCS; principal; 2020-02-13)
PROC: 3E043XZ Introduction of Vasopressor into Central Vein, Percutaneous Approach (ICD-10-PCS; principal; 2020-02-13)
PROC: 4A133J1 Monitoring of Arterial Pulse, Peripheral, Percutaneous Approach (ICD-10-PCS; principal; 2020-02-13)
PROC: 5A1945Z Respiratory Ventilation, 24-96 Consecutive Hours (ICD-10-PCS; principal; 2020-02-13)
PROC: 0D9670Z Drainage of Stomach with Drainage Device, Via Natural or Artificial Opening (ICD-10-PCS; principal; 2020-02-13)
PROC: 03HY32Z Insertion of Monitoring Device into Upper Artery, Percutaneous Approach (ICD-10-PCS; principal; 2020-02-13)
PROC: 0BH17EZ Insertion of Endotracheal Airway into Trachea, Via Natural or Artificial Opening (ICD-10-PCS; principal; 2020-02-13)
PROC: 06HM33Z Insertion of Infusion Device into Right Femoral Vein, Percutaneous Approach (ICD-10-PCS; principal; 2020-02-13)
PROC: 5A09357 Assistance with Respiratory Ventilation, Less than 24 Consecutive Hours, Continuous Positive Airway Pressure (ICD-10-PCS; 2020-02-13)
PROC: 3E0G76Z Introduction of Nutritional Substance into Upper GI, Via Natural or Artificial Opening (ICD-10-PCS; 2020-02-14)
DX: A41.9 Sepsis, unspecified organism (principal); J96.21 Acute and chronic respiratory failure with hypoxia; J96.22 Acute and chronic respiratory failure with hypercapnia; J15.1 Pneumonia due to Pseudomonas; J69.0 Pneumonitis due to inhalation of food and vomit; J44.0 Chronic obstructive pulmonary disease with (acute) lower respiratory infection; J44.1 Chronic obstructive pulmonary disease with (acute) exacerbation; E44.0 Moderate protein-calorie malnutrition; R64 Cachexia; R04.2 Hemoptysis; Z68.1 Body mass index [BMI] 19.9 or less, adult; I95.9 Hypotension, unspecified; I50.9 Heart failure, unspecified; R65.20 Severe sepsis without septic shock; I71.4 Abdominal aortic aneurysm, without rupture; Z66 Do not resuscitate; Z20.828 Contact with and (suspected) exposure to other viral communicable diseases; E86.0 Dehydration; K21.9 Gastro-esophageal reflux disease without esophagitis; F41.9 Anxiety disorder, unspecified; E78.5 Hyperlipidemia, unspecified; Y95 Nosocomial condition; Z99.81 Dependence on supplemental oxygen; Z79.51 Long term (current) use of inhaled steroids; Z79.52 Long term (current) use of systemic steroids; Z79.82 Long term (current) use of aspirin; Z79.899 Other long term (current) drug therapy; Z86.79 Personal history of other diseases of the circulatory system; Z87.01 Personal history of pneumonia (recurrent); Z71.3 Dietary counseling and surveillance; Z90.710 Acquired absence of both cervix and uterus; Z87.42 Personal history of other diseases of the female genital tract; Z85.038 Personal history of other malignant neoplasm of large intestine; Z87.891 Personal history of nicotine dependence; Z87.19 Personal history of other diseases of the digestive system; Z86.010 Personal history of colon polyps; Z98.42 Cataract extraction status, left eye; Z98.41 Cataract extraction status, right eye; Z88.1 Allergy status to other antibiotic agents; Z83.3 Family history of diabetes mellitus; Z80.42 Family history of malignant neoplasm of prostate
CPT/HCPCS: 36415; 71045; 71275; 74174; 80048; 80053; 82728; 82805; 83605; 83615; 83625; 83735; 84100; 84145; 85025; 85379; 85610; 85730; 86140; 87040; 87070; 87077; 87186; 87205; 93005; 94002; 94003; 94640; 94660; 96365; 96367; 96375; 99285